=== PATIENT | female | born 1975 | race American Indian/Alaskan Native ===

== ENCOUNTER 2017-05-15 08:59 | Emergency (ER) | payer MEDICARE, MEDICAID ==
[2017-05-15 09:00] VITALS: BMI 35.2
[2017-05-15] MEDS ORDERED: Famotidine 20mg/50ml 20 MG/50 ML BAG IVPB STA (09:19)
--- NOTE | 2017-05-15 09:20 | ED PDOC ---
Arrival/HPI - General Time Seen by Provider: 05/15/17 09:00 Historian: Patient - History of Present Illness Narrative History of Present Illness (Text): 05/15/17 09:10 Demi Corral is a 41 year old female, whose past medical history includes lupus , hypothyroidism, and RA, who presents to the emergency department complaining of shortness of breath since one day ago. Patient reports also having a "gas bubble" feeling in her upper abdomen that has been intermittent for one week and describes it as an aching feeling. Her shortness of breath is worse with movement and improves on rest. Patient denies fever, nasal congestion, chest pain, nausea, vomiting, diarrhea, or other complaints. PMD: Dr. Garcia Lithographic Press Operator Apprentice: Dr. Raya Time/Duration: 24 hours Symptom Onset: Sudden Symptom Course: Unchanged, Intermittent Quality: Aching, Gas Like Activities at Onset: Light Past Medical History - Provider Review Nursing Documentation Reviewed: Yes - Infectious Disease Hx of Infectious Diseases: None - Tetanus Immunization Tetanus Immunization: Up to Date - Cardiac Hx Cardiac Disorders: No - Pulmonary Hx Pneumonia: Yes - Neurological Hx Neurological Disorder: No - HEENT Hx HEENT Disorder: No - Renal Hx Renal Disorder: No - Endocrine/Metabolic Hx Hypothyroidism: Yes Hx Systemic Lupus Erythematosus: Yes - Hematological/Oncological Other/Comment: lupus - Integumentary Hx Dermatological Disorder: No - Musculoskeletal/Rheumatological Hx Arthritis: Yes (RA) - Gastrointestinal Hx Gastrointestinal Disorders: No - Genitourinary/Gynecological Hx Genitourinary Disorders: No - Psychiatric Hx Depression: No Hx Emotional Abuse: No Hx Physical Abuse: No Hx Substance Use: No - Surgical History Hx Orthopedic Surgery: Yes (left leg ruptured achillies tendon sx, RIGHT ANKLE) Other/Comment: vocal cord nodule removal - Anesthesia Hx Anesthesia: Yes - Suicidal Assessment Feels Threatened In Home Enviroment: No Family/Social History - Physician Review Nursing Documentation Reviewed: Yes Family/Social History: Unknown Family HX Smoking Status: Never Smoked Hx Alcohol Use: No Hx Substance Use: No Hx Substance Use Treatment: No Allergies/Home Meds Allergies/Adverse Reactions: Allergies aspirin Allergy (Verified 05/15/17 09:28) RASH Home Medications: Home Meds Medication Instructions Recorded Confirmed Adalimumab [Humira] 40 mg SC Q2W 06/19/14 05/15/17 Hydroxychloroquine Sulfate 200 mg PO BID 03/25/16 05/15/17 [Plaquenil] Levothyroxine [Synthroid] 225 mcg PO DAILY 03/25/16 05/15/17 Mycophenolate Mofetil [Cellcept] 500 mg PO BID 03/25/16 05/15/17 Review of Systems - Review of Systems Constitutional: absent: Fevers Respiratory: SOB. absent: Cough Cardiovascular: absent: Chest Pain Gastrointestinal: Abdominal Pain (gas like feeling on upper abdominal region). absent: Diarrhea, Nausea, Vomiting Genitourinary Female: absent: Dysuria, Frequency, Vaginal Discharge Musculoskeletal: absent: Back Pain Skin: absent: Rash Neurological: absent: Headache Endocrine: absent: Diaphoresis Psychiatric: absent: Anxiety Physical Exam Vital Signs Reviewed: Yes Vital Signs Temp Pulse Resp BP Pulse Ox 05/15/17 13:00 88 17 125/81 98 05/15/17 10:58 72 18 108/71 100 05/15/17 09:40 98.8 F 80 18 105/71 100 05/15/17 09:30 16 99 Temperature: Afebrile Blood Pressure: Normal Pulse: Regular Respiratory Rate: Normal Appearance: Positive for: Well-Appearing, Non-Toxic, Comfortable Pain Distress: None Mental Status: Positive for: Alert and Oriented X 3 - Systems Exam Head: Present: Atraumatic, Normocephalic Pupils: Present: PERRL Extroacular Muscles: Present: EOMI Conjunctiva: Present: Normal Neck: Present: Normal Range of Motion Respiratory/Chest: Present: Clear to Auscultation, Good Air Exchange. No: Respiratory Distress, Accessory Muscle Use Cardiovascular: Present: Regular Rate and Rhythm, Normal S1, S2. No: Murmurs Abdomen: Present: Tenderness (epigastric region), Normal Bowel Sounds. No: Distention, Peritoneal Signs, Rebound, Guarding Lower Extremity: Present: Normal Inspection, NORMAL PULSES, Normal ROM, Neurovascularly Intact, Capillary Refill < 2 s. No: Edema, Cyanosis, Srikanth's Sign, Tenderness, Swelling Neurological: Present: GCS=15, CN II-XII Intact, Speech Normal Skin: Present: Warm, Dry, Normal Color. No: Rashes Psychiatric: Present: Alert, Oriented x 3, Normal Insight, Normal Concentration Medical Decision Making ED Course and Treatment: 05/15/17 Impression: 41 year old female with tenderness on epigastric region of abdomen complaining of shortness of breath and gas like description discomfort in upper abdomen. Differential Diagnosis included but are not limited to: Pleuritis vs. Pulmonary embolism vs Pericarditis vs. CHF exacerbation Plan: -- EKG -- Chest X-ray -- Labs -- Urinalysis -- Pepcid -- Reassess and disposition Progress Notes: EKG: Ordered, reviewed, and independently interpreted the EKG. Rate : 83 BPM Rhythm : NSR Interpretation : T-wave inversion on anterior leads. No change from previous EKG Comparison : 03/25/2016 05/15/17 12:00 CT chest: Creator : Kj Parks MD COMPARISON: 03/25/2016 CT pulmonary angiogram. Summary of findings on the comparison examination: Point Unremarkable CT pulmonary angiogram. No pulmonary embolus. FINDINGS: PULMONARY ARTERIES:Unremarkable. No pulmonary embolism. Dilated main pulmonary artery suggestive of pulmonary arterial hypertension. AORTA:No acute findings. No thoracic aortic aneurysm. LUNGS:Unremarkable. No nodule, mass or pulmonary consolidation. PLEURAL SPACES:Unremarkable. No effusion or pneuomothorax. HEART:Unremarkable. No cardiomegaly. No significant pericardial effusion. LYMPH NODES:No lymphadenopathy. BONES, CHEST WALL:Unremarkable. No fracture or destructive lesion OTHER FINDINGS:Unremarkable. IMPRESSION: Unremarkable CT pulmonary angiogram. No pulmonary embolus.No significant interval change compared to the prior examination(s) 05/15/17 14:[address] reviewed and explained to patient the results. Troponin negative. EKG normal with no change from previous. No evidence of pericarditis. Patient felt better after Pepcid IV. UA showed UTI so will treat with Bactrim. CBC showed WBC 1.6. Patient does not have a fever nor does she report a fever. She walks around the ED without shortness of breathe or desaturation. She feels much better and will be discharged home. She will follow up with her primary care doctor and rhematologist. She was advised to return to the ED if symptoms worsen, fever, chills, shortness of breathe, or any other concern. - Lab Interpretations Lab Results: 05/15/17 10:15 05/15/17 10:15 Lab Results 05/15/17 10:15: TSH 3rd Generation 51.00 H 05/15/17 10:15: Sodium 137, Potassium 4.2, Chloride 101, Carbon Dioxide 26, Anion Gap 15, BUN 11, Creatinine 1.0, Est GFR ( Amer) > 60, Est GFR (Non- Af Amer) > 60, Random Glucose 81, Calcium 9.4, Magnesium 1.6 L, Total Bilirubin 0.5, AST 26, ALT 13, Alkaline Phosphatase 87, Lactate Dehydrogenase 603, Total Creatine Kinase 39, Troponin I < 0.01, NT-Pro-B Natriuret Pep 66.5, Total Protein 9.1 H, Albumin 3.6, Globulin 5.4, Albumin/Globulin Ratio 0.7 L, Lipase 237 05/15/17 10:15: PT 12.4, INR 1.08, APTT 34.3, D-Dimer, Quantitative 2474 H 05/15/17 10:15: WBC 1.6 L* D, RBC 3.19 L, Hgb 9.7 L, Hct 30.7 L, MCV 96.2, MCH 30.4, MCHC 31.6, RDW 15.1 H, Plt Count 127, MPV 10.9, Gran % 73.5 H, Lymph % ( Auto) 18.9 L, Daniels % (Auto) 5.7, Eos % (Auto) 1.9, Baso % (Auto) 0.0, Gran # 1.17 L, Lymph # (Auto) 0.3 L, Daniels # (Auto) 0.1, Eos # (Auto) 0.0, Baso # (Auto ) 0.00 05/15/17 05:30: Urine Color Yellow, Urine Appearance Sl cloudy, Urine pH 6.0, Ur Specific [place] 1.025, Urine Protein Trace H, Urine Glucose (UA) Negative, Urine Ketones Trace H, Urine Blood Negative, Urine Nitrate Positive H, Urine Bilirubin Negative, Urine Urobilinogen 0.2, Ur Leukocyte Esterase Small H, Urine RBC 0 - 2, Urine WBC 5 - 10, Ur Epithelial Cells 3 - 4, Urine Bacteria Many I have reviewed the lab results: Yes - RAD Interpretation Radiology Orders: 05/15/17 09:18 CHEST PORTABLE [RAD] Stat 05/15/17 09:29 ANGIO CHEST PE PROTOCOL [CT] Stat Traveling Repair Accountant: Radiologist - EKG Interpretation Interpreted by ED Physician: Yes Type: 12 lead EKG Comparison: Com.w/previous EKG (03/25/2016) - Medication Orders Current Medication Orders: Discontinued Medications Famotidine (Pepcid 20mg/50ml Premix) 20 mg in 50 mls @ 100 mls/hr IVPB STAT STA Stop: 05/15/17 09:48 Last Admin: 05/15/17 10:08 Dose: 100 mls/hr eMAR Start Stop Document 05/15/17 10:08 BERNADINE (Rec: 05/15/17 10:17 BERNADINE [id number]) Intravenous Solution Start Date 05/15/17 Start Time 10:17 End Date 05/15/17 End time 10:47 Total Infusion Time 30 Oxycodone/Acetaminophen (Percocet 5/325 Mg Tab) 1 tab PO STAT STA Stop: 05/15/17 11:58 Last Admin: 05/15/17 12:11 Dose: 1 tab MAR Pain Assessment Document 05/15/17 12:11 BERNADINE (Rec: 05/15/17 12:12 BERNADINE [facility] [id number]) Pain Reassessment Is this a pain reassessment? Yes Presence of Pain Presence of Pain Yes Pain Scale Used Pain Scale Used Numeric Location Pain Location Body Site Joint Description Intensity of Pain at present 8 Trimethoprim/Sulfamethoxazole (Bactrim Ds Tab) 1 tab PO STAT STA PRN Reason: Protocol Stop: 05/15/17 12:12 Last Admin: 05/15/17 12:51 Dose: 1 tab - Scribe Statement The provider has reviewed the documentation as recorded by the Scribe Gisela Lopez Provider Scribe Attestation: All medical record entries made by the Scribe were at my direction and personally dictated by me. I have reviewed the chart and agree that the record accurately reflects my personal performance of the history, physical exam, medical decision making, and the department course for this patient. I have also personally directed, reviewed, and agree with the discharge instructions and disposition. Disposition/Present on Arrival - Present on Arrival Any Indicators Present on Arrival: No History of DVT/PE: No History of Uncontrolled Diabetes: No Urinary Catheter: No History Surgical Site Infection Following: None - Disposition Have Diagnosis and Disposition been Completed?: Yes Diagnosis: Pleuritis, Shortness of breath, Gastritis, Neutropenia Disposition: HOME/ ROUTINE Disposition Time: 14:08 Patient Plan: Discharge Condition: IMPROVED Discharge Instructions (ExitCare): Gastritis (ED) Additional Instructions: Ms Corral, thank you for letting us take care of you today. Your provider was Dr. Dozier. You were treated for Neutropenic, Gastritis, Pleuritis, Shortness of Breathe. The emergency medical care you received today was directed at your acute symptoms. If you were prescribed any medication, please fill it and take as directed. It may take several days for your symptoms to resolve. Return to the Emergency Department if your symptoms worsen, do not improve, or if you have any other problems. Please contact your doctor or call one of the physicians/clinics you have been referred to that are listed on the Patient Visit Information form that is included in your discharge packet. Bring any paperwork you were given at discharge with you along with any medications you are taking to your follow up visit. Our treatment cannot replace ongoing medical care by a primary care provider (PCP) outside of the emergency department. Thank you for allowing the [email or web address] team to be part of your care today. If you had an X-Ray or CT scan: A Radiologist will review the ED reading if any change in treatment is needed we will contact you. If you had a blood, urine, or wound culture: It will take several days for the results, if any change in treatment is needed we will contact you. If you had an STI test: It will take 48 hours for the results. Please call after 1 week if you have not heard back. Prescriptions: Sulfamethoxazole/Trimethoprim [Bactrim DS 800 mg-160 mg] 1 tab PO Q12 #6 tab Referrals: Felicia Garcia MD [Primary Care Provider] - Follow up with primary Forms: [employer] (Czech), WORK NOTE
[2017-05-15 09:41] VITALS: TEMP 98.8
[2017-05-15 10:17] LABS: URINE BILIRUBIN NEGATIVE (NEGATIVE); URINE BLOOD NEGATIVE (NEGATIVE); URINE GLUCOSE (UA) NEGATIVE (NEGATIVE); URINE LEUKOCYTE ESTERASE SMALL Leu/uL (NEGATIVE); URINE NITRATE POSITIVE (NEGATIVE); URINE PROTEIN TRACE mg/dL (<30 mg/dL); URINE UROBILINOGEN 0.2 E.U./dL (<1 E.U./dL)
[2017-05-15 10:25] LABS: URINE COLOR YELLOW (YELLOW)
[2017-05-15 10:26] LABS: URINE APPEARANCE SL CLOUDY (CLEAR)
[2017-05-15 10:34] LABS: EOS % 1.9 % (1.5-5.0); GRAN # 1.17 (1.4-6.5); GRAN % 73.5 % (50.0-68.0); HEMOGLOBIN 9.7 g/dL (12.0-16.0); LYMPH # 0.3 (1.2-3.4); LYMPH % 18.9 % (22.0-35.0); MEAN CELL VOLUME 96.2 fl (80.0-105.0); MEAN CORPUSCULAR HEMOGLOBIN 30.4 pg (25.0-35.0); MEAN CORPUSCULAR HGB CONC 31.6 g/dl (31.0-37.0); MEAN PLATELET VOLUME 10.9 fl (7.0-11.0); MONO # 0.1 (0.1-0.6); MONO % 5.7 % (1.0-6.0); RBC 3.19 10^6/uL (3.5-6.1); RED CELL DISTRIBUTION WIDTH 15.1 % (11.5-14.5)
[2017-05-15 10:41] LABS: WHITE BLOOD COUNT 1.6 10^3/ul (4.5-11.0)
[2017-05-15 10:43] LABS: URINE RBC 0 - 2 /hpf (0-2)
[2017-05-15 10:44] LABS: URINE BACTERIA MANY (NEG)
[2017-05-15] MEDS ORDERED: Iohexol 350 MG/100 ML VIAL ONE (10:44)
[2017-05-15 10:46] LABS: INR 1.08 (0.93-1.08); PARTIAL THROMBOPLASTIN TIME 34.3 Seconds (25.1-36.5); PROTHROMBIN TIME 12.4 SECONDS (9.4-12.5)
[2017-05-15 10:52] LABS: B-TYPE NATRIURETIC PEPTIDE 66.5 pg/mL (0-450); TROPONIN I < 0.01 ng/mL
[2017-05-15 10:54] LABS: ALB/GLOB RATIO 0.7 (1.1-1.8); ALBUMIN 3.6 g/dL (3.0-4.8); ALT/SGPT 13 U/L (7-56); AST/SGOT 26 U/L (14-36); BLOOD UREA NITROGEN 11 mg/dL (7-21); CALCIUM 9.4 mg/dL (8.4-10.5); GFR AFRICAN-AMERICAN > 60; GFR NON-AFRICAN AMERICAN > 60; LIPASE 237 U/L (23-300); MAGNESIUM 1.6 mg/dL (1.7-2.2)
--- NOTE | 2017-05-15 11:51 | CT ---
PROCEDURE: CT Chest with contrast (Pulmonary Angiogram) HISTORY: r/o PE COMPARISON: 03/25/2016 CT pulmonary angiogram. Summary of findings on the comparison examination: Point Unremarkable CT pulmonary angiogram. No pulmonary embolus. TECHNIQUE: Axial computed tomography images were obtained of the chest in the pulmonary arterial phase of enhancement. Coronal and sagittal reformatted images were created and reviewed. Maximum intensity projection (MIP) reconstructed images in the following planes: Axial and sagittal projections. Intravenous contrast dose: 100 cc Omnipaque 350. Mean Hounsfield unit values in the main pulmonary artery: 328.31 Radiation dose: Total exam DLP = 393.10 mGy-cm. This CT exam was performed using one or more of the following dose reduction techniques: Automated exposure control, adjustment of the mA and/or kV according to patient size, and/or use of iterative reconstruction technique. FINDINGS: PULMONARY ARTERIES: Unremarkable. No pulmonary embolism. Dilated main pulmonary artery suggestive of pulmonary arterial hypertension. AORTA: No acute findings. No thoracic aortic aneurysm. LUNGS: Unremarkable. No nodule, mass or pulmonary consolidation. PLEURAL SPACES: Unremarkable. No effusion or pneuomothorax. HEART: Unremarkable. No cardiomegaly. No significant pericardial effusion. LYMPH NODES: No lymphadenopathy. BONES, CHEST WALL: Unremarkable. No fracture or destructive lesion OTHER FINDINGS: Unremarkable. IMPRESSION: Unremarkable CT pulmonary angiogram. No pulmonary embolus.No significant interval change compared to the prior examination(s).
[2017-05-15] MEDS ORDERED: Oxycodone/Acetaminophen 5/325 mg Tab PO STA (11:57)
[2017-05-15] MEDS ORDERED: Tmp-Smz 800 mg-160 mg DS Tab PO STA (12:11)
--- NOTE | 2017-05-15 12:39 | RAD ---
HISTORY: Shortness of breath. COMPARISON: 03/25/2016 goNo prior. FINDINGS: LUNGS: No active pulmonary disease. PLEURA: No significant pleural effusion identified, no pneumothorax apparent. CARDIOVASCULAR: No radiographic findings to suggest acute or significant cardiovascular disease. OSSEOUS STRUCTURES: No significant abnormalities. VISUALIZED UPPER ABDOMEN: Normal. OTHER FINDINGS: None. IMPRESSION: No active disease. No significant interval change compared to the prior examination(s). Concordant results with the preliminary interpretation rendered by the emergency department physician procedure.
[2017-05-15 13:01] VITALS: BP 125/81; PULSE 88; RESP 17; O2SAT 98
--- NOTE | 2017-05-15 16:36 | CARD ---
APPROVED REPORT EKG Measurement Heart [id number] 132P48 [id number] <Conclusion> Poor data quality, interpretation may be adversely affected Normal sinus rhythm Cannot rule out Anterior infarct, age undetermined Abnormal ECG
== END 2017-05-15 14:08 | disposition home or self-care (01) ==
LOC: ED 08:59
DX: K29.70 Gastritis, unspecified, without bleeding (principal); D70.9 Neutropenia, unspecified; R06.02 Shortness of breath; R09.1 Pleurisy
CPT/HCPCS: 71045; 71275; 80053; 81001; 82550; 83615; 83690; 83735; 83880; 84443; 84484; 85025; 85378; 85610; 85730; 93005; 96365; 99283; Q9967

== ENCOUNTER 2017-08-15 22:40 | Inpatient (IN) | payer MEDICARE, MEDICAID ==
[2017-08-15] MEDS ORDERED: Sodium Chloride 0.9% 1,000 ML IV STA (23:12)
--- NOTE | 2017-08-15 23:16 | ED PDOC ---
Arrival/HPI - General Chief Complaint: GI Problem Time Seen by Provider: 08/15/17 22:49 Historian: Patient, Family - History of Present Illness Narrative History of Present Illness (Text): you were treated in the ED today for hx of Lupus, rheumatoid arthritis, hypothyroidism, and ran out of hydro-codone and now with nausea/vomiting for several episodes and otherwise without any bile/blood/new foods/travel/sick contacts/headache/dizziness/difficulty breathing/chest pain/abdomen pain/ numbness/tingling/loss of limb function/pain with urination/thoughts to harm yourself or others or hallucinations. 08/15/17 23:13 Time/Duration: 24 hours Symptom Onset: Gradual Symptom Course: Intermittent Quality: Other (no pain) Activities at Onset: Rest Context: Sitting Past Medical History - Provider Review Nursing Documentation Reviewed: Yes - Travel History Have you recently traveled outside [place] w/in the past 3 mons?: No - Infectious Disease Hx of Infectious Diseases: None - Tetanus Immunization Tetanus Immunization: Up to Date - Cardiac Hx Cardiac Disorders: No - Pulmonary Hx Pneumonia: Yes - Neurological Hx Neurological Disorder: No - HEENT Hx HEENT Disorder: No - Renal Hx Renal Disorder: No - Endocrine/Metabolic Hx Hypothyroidism: Yes Hx Systemic Lupus Erythematosus: Yes - Hematological/Oncological Other/Comment: lupus - Integumentary Hx Dermatological Disorder: No - Musculoskeletal/Rheumatological Hx Arthritis: Yes (RA) Hx Rheumatoid Arthritis: Yes - Gastrointestinal Hx Gastrointestinal Disorders: No - Genitourinary/Gynecological Hx Genitourinary Disorders: No - Psychiatric Hx Depression: No Hx Emotional Abuse: No Hx Physical Abuse: No Hx Substance Use: No - Surgical History Hx Orthopedic Surgery: Yes (left leg ruptured achillies tendon sx, RIGHT ANKLE) Other/Comment: vocal cord nodule removal - Anesthesia Hx Anesthesia: Yes - Suicidal Assessment Feels Threatened In Home Enviroment: No Family/Social History - Physician Review Nursing Documentation Reviewed: Yes Family/Social History: No Known Family HX Smoking Status: Never Smoked Hx Alcohol Use: No Hx Substance Use: No Hx Substance Use Treatment: No Allergies/Home Meds Allergies/Adverse Reactions: Allergies aspirin Allergy (Verified 05/15/17 09:28) RASH Home Medications: Home Meds Medication Instructions Recorded Confirmed Adalimumab [Humira] 40 mg SC Q2W 06/19/14 08/15/17 Hydroxychloroquine Sulfate 200 mg PO BID 03/25/16 08/15/17 [Plaquenil] Levothyroxine [Synthroid] 225 mcg PO DAILY 03/25/16 08/15/17 Mycophenolate Mofetil [Cellcept] 500 mg PO BID 03/25/16 08/15/17 Hydrocodone/Acetaminophen 1 tab PO QID PRN 08/15/17 08/15/17 [Hydrocodone-Acetaminophen 325 mg-7 mg] Review of Systems - Review of Systems Constitutional: Normal Eyes: Normal ENT: Normal Respiratory: Normal Cardiovascular: Normal Gastrointestinal: Nausea, Vomiting Genitourinary Female: Normal Musculoskeletal: Normal Skin: Normal Neurological: Normal Endocrine: Normal Hemo/Lymphatic: Normal Psychiatric: Normal Physical Exam Vital Signs Reviewed: Yes Vital Signs Temp Pulse Resp BP Pulse Ox 08/16/17 00:10 100 08/15/17 23:52 103.3 F H 111 H 20 115/80 Appearance: Positive for: Well-Appearing, Non-Toxic, Comfortable Pain Distress: None Mental Status: Positive for: Alert and Oriented X 3 - Systems Exam Head: Present: Atraumatic, Normocephalic Pupils: Present: PERRL Extroacular Muscles: Present: EOMI Conjunctiva: Present: Normal Ears: Present: Normal Mouth: Present: Moist Mucous Membranes Pharnyx: Present: Normal Nose (External): Present: Atraumatic Nose (Internal): Present: Normal Inspection Neck: Present: Normal Range of Motion Respiratory/Chest: Present: Clear to Auscultation, Good Air Exchange Cardiovascular: Present: Regular Rate and Rhythm Abdomen: No: Tenderness, Distention, Normal Bowel Sounds, Peritoneal Signs, Rebound, Guarding, McBurney's Point Tender, Rovsing's Sign Present, Hernias, Feeding Tubes, Ostomy Tubes, Mass/Organomegaly, Scars, Other Back: Present: Normal Inspection Upper Extremity: Present: Normal Inspection Lower Extremity: Present: Normal Inspection Neurological: Present: GCS=15, CN II-XII Intact, Speech Normal, Motor Func Grossly Intact Skin: Present: Warm, Normal Color Psychiatric: Present: Alert, Oriented x 3, Normal Insight, Normal Concentration Medical Decision Making ED Course and Treatment: you were treated in the ED today for hx of Lupus, rheumatoid arthritis, hypothyroidism, and ran out of hydro-codone and now with nausea/vomiting for several episodes and otherwise without any bile/blood/new foods/travel/sick contacts/headache/dizziness/difficulty breathing/chest pain/abdomen pain/ numbness/tingling/loss of limb function/pain with urination/thoughts to harm yourself or others or hallucinations. You were otherwise breathing easily, talking easily with your son, pink lips, good strength/sensation, walking easily , clear lungs, no abdomen tenderness, fever temp 103.3, fast heart rate 111, stable breathing rate 20, excellent oxygen level 100% room air, elevated blood pressure 115/80 which we recommend repeat in 2-3 days primary care office to determine further treatment, you have blood tests no infection count 9.8, stable blood level hemoglobin 9.9/platelets 195, stable chemistry, heart blood test negative less than 0.01, urine test pending, lactic acid negative 1.8, influenza test negative, ECG sinus tachycardia, chest xray with right hilar fullness/early pneumonia, saline, zofran, percocet, azithromycin, observation done in the ED without improvement. d/w patient who states feels dehydrated with nausea/vomiting, and requested admission and dw Dr. Nayak who accepted for hydration, iv azithromycin treatment, for dehydration, early pneumonia and opioid withdrawal to remote telemetry. Reassessment Condition: Re-examined, Improved - Lab Interpretations Lab Results: 08/15/17 23:40 08/15/17 23:40 Lab Results 08/16/17 00:50: pO2 25 L, VBG pH 7.43, VBG pCO2 45.0, VBG HCO3 29.9 H, VBG Total CO2 31.3 H, VBG O2 Sat (Calc) 42.5, VBG Base Excess 4.8 H, VBG Potassium 4.3, Glucose 81, Lactate 1.8, FiO2 21.0, Sodium 138.0, Chloride 105.0, Venous Blood Potassium 4.3 08/16/17 00:08: Influenza Typ A,B (EIA) Negative for flu a/b 08/15/17 23:40: Sodium 142, Potassium 4.7, Chloride 101, Carbon Dioxide 27, Anion Gap 19, BUN 15, Creatinine 1.1, Est GFR ( Amer) > 60, Est GFR (Non- Af Amer) 54, Random Glucose 90, Calcium 9.5, Magnesium 1.7, Total Bilirubin 0.6 , AST 35, ALT 8, Alkaline Phosphatase 107, Lactate Dehydrogenase 714 H, Total Creatine Kinase 25 L, Troponin I < 0.01, Total Protein 9.9 H, Albumin 4.0, Globulin 5.9, Albumin/Globulin Ratio 0.7 L 08/15/17 23:40: PT 13.8 H, INR 1.21 H, APTT 36.4 08/15/17 23:40: WBC 9.8 D, RBC 3.32 L, Hgb 9.9 L, Hct 30.4 L, MCV 91.6 D, MCH 29.8, MCHC 32.6, RDW 14.2, Plt Count 195, MPV 11.0, Gran % 90.6 H, Lymph % (Auto ) 4.8 L, [place] % (Auto) 4.5, Eos % (Auto) 0.0 L, Baso % (Auto) 0.1, Gran # 8.90 H , Lymph # (Auto) 0.5 L, [place] # (Auto) 0.4, Eos # (Auto) 0.0, Baso # (Auto) 0.01 , Neutrophils % (Manual) 85 H, Band Neutrophils % 4 H, Lymphocytes % (Manual) 6 L, Monocytes % (Manual) 5, Platelet Evaluation Normal I have reviewed the lab results: Yes - RAD Interpretation Radiology Orders: 08/16/17 00:01 CHEST PORTABLE [RAD] Stat Assistant Professor Of Philosophy: ED Physician - EKG Interpretation Interpreted by ED Physician: Yes (sinus tachycardia, flipped t waves avr, v1, v2 , v3, v4, v5, v5, iii) Type: 12 lead EKG - Medication Orders Current Medication Orders: Discontinued Medications Acetaminophen (Tylenol 325mg Tab) 650 mg PO STAT STA Stop: 08/16/17 00:03 Last Admin: 08/16/17 00:12 Dose: 650 mg Azithromycin (Zithromax) 500 mg PO STAT STA PRN Reason: Protocol Stop: 08/16/17 01:29 Last Admin: 08/16/17 01:59 Dose: 500 mg Sodium Chloride (Sodium Chloride 0.9%) 1,000 mls @ 999 mls/hr IV .Q1H1M STA Stop: 08/16/17 00:12 Last Admin: 08/15/17 23:48 Dose: 999 mls/hr eMAR Start Stop Document 08/15/17 23:48 CNR (Rec: 08/15/17 23:48 CNR [id number]) Intravenous Solution Start Date 08/15/17 Start Time 23:48 Ondansetron HCl (Zofran Inj) 4 mg IVP STAT STA Stop: 08/15/17 23:13 Last Admin: 08/15/17 23:48 Dose: 4 mg IVP Administration Document 08/15/17 23:48 CNR (Rec: 08/15/17 23:49 CNR [id number]) Charges for Administration # of IVP Administrations 1 Oxycodone/Acetaminophen (Percocet 5/325 Mg Tab) 1 tab PO STAT STA Stop: 08/15/17 23:37 Last Admin: 08/15/17 23:49 Dose: 1 tab MAR Pain Assessment Document 08/15/17 23:49 CNR (Rec: 08/15/17 23:49 CNR [id number]) Pain Reassessment Is this a pain reassessment? Yes Disposition/Present on Arrival - Present on Arrival Any Indicators Present on Arrival: No History of DVT/PE: No History of Uncontrolled Diabetes: No Urinary Catheter: No History of Decub. Ulcer: No History Surgical Site Infection Following: None - Disposition Have Diagnosis and Disposition been Completed?: Yes Diagnosis: Opioid withdrawal, Dehydration, Nausea & vomiting, Pneumonia Disposition: HOSPITALIZED Disposition Time: 03:05 Patient Plan: Admission Condition: STABLE Referrals: Jerrell Rondon MD [Primary Care Provider] - Follow up with primary Forms: [employer] (Romansh)
[2017-08-15] MEDS ORDERED: Oxycodone/Acetaminophen 5/325 mg Tab PO STA (23:36)
[2017-08-16] LABS: BASO # 0.01 K/mm3 (0.0-2.0); BASO % 0.1 % (0.0-3.0); GRAN % 90.6 % (50.0-68.0); HEMOGLOBIN 9.9 g/dL (12.0-16.0); LYMPH # 0.5 (1.2-3.4); LYMPH % 4.8 % (22.0-35.0); MEAN CORPUSCULAR HEMOGLOBIN 29.8 pg (25.0-35.0); MEAN CORPUSCULAR HGB CONC 32.6 g/dl (31.0-37.0); MONO # 0.4 (0.1-0.6); MONO % 4.5 % (1.0-6.0); PLATELET COUNT 195 10^3/uL (120.0-450.0); RBC 3.32 10^6/uL (3.5-6.1); RED CELL DISTRIBUTION WIDTH 14.2 % (11.5-14.5); WHITE BLOOD COUNT 9.8 10^3/ul (4.5-11.0)
[2017-08-16 00:05] LABS: MEAN CELL VOLUME 91.6 fl (80.0-105.0)
[2017-08-16 00:06] LABS: ALB/GLOB RATIO 0.7 (1.1-1.8); CALCIUM 9.5 mg/dL (8.4-10.5); GFR AFRICAN-AMERICAN > 60; GFR NON-AFRICAN AMERICAN 54; INR 1.21 (0.93-1.08); PARTIAL THROMBOPLASTIN TIME 36.4 Seconds (25.1-36.5); PROTHROMBIN TIME 13.8 SECONDS (9.4-12.5)
[2017-08-16 00:17] LABS: TROPONIN I < 0.01 ng/mL
[2017-08-16 00:46] LABS: BAND 4 % (0-2); NEUTROPHIL 85 % (50.0-70.0)
[2017-08-16 00:47] LABS: LYMPHOCYTE 6 % (22.0-35.0); MONOCYTE 5 % (1.0-6.0); PLATELET ESTIMATE NORMAL (NORMAL)
[2017-08-16 00:52] LABS: ALT/SGPT 8 U/L (7-56); AST/SGOT 35 U/L (14-36); BLOOD UREA NITROGEN 15 mg/dL (7-21)
[2017-08-16 01:08] LABS: VENOUS BLOOD GAS BASE EXCESS 4.8 mmol/L (0.0-2.0); VENOUS BLOOD GAS PO2 25 mm/Hg (30-55); VENOUS BLOOD PH 7.43 (7.32-7.43)
[2017-08-16] MEDS ORDERED: Azithromycin 500MG/NS 250ml 500 MG/250 ML BAG IVPB STA (02:59)
[2017-08-16] MEDS ORDERED: Oxycodone/Acetaminophen 5/325 mg Tab PO STA (03:07)
[2017-08-16 05:03] LABS: URINE BILIRUBIN NEGATIVE (NEGATIVE); URINE BLOOD NEGATIVE (NEGATIVE); URINE GLUCOSE (UA) NEGATIVE (NEGATIVE); URINE LEUKOCYTE ESTERASE NEGATIVE Leu/uL (NEGATIVE); URINE PROTEIN 30 mg/dL (<30 mg/dL); URINE UROBILINOGEN 0.2 E.U./dL (<1 E.U./dL)
[2017-08-16 05:11] LABS: URINE APPEARANCE CLEAR (CLEAR); URINE COLOR YELLOW (YELLOW)
[2017-08-16 05:15] LABS: PHENCYCLIDINE, UR NEGATIVE (NEGATIVE)
[2017-08-16 05:20] LABS: URINE BACTERIA RARE (NEG); URINE RBC 0 - 2 /hpf (0-2)
[2017-08-16 05:35] VITALS: BMI 32.1
[2017-08-16 05:41] LABS: BARBITURATES, UR NEGATIVE (NEGATIVE); BENZODIAZEPINES, UR NEGATIVE (NEGATIVE); OPIATES, UR POSITIVE (NEGATIVE)
--- NOTE | 2017-08-16 08:48 | CARD ---
APPROVED REPORT EKG Measurement Heart [id number] [id number] <Conclusion> Sinus tachycardia Nonspecific T wave abnormality Shallow T wave inversions V5 - 6 are new.
--- NOTE | 2017-08-16 09:13 | RAD ---
HISTORY: 42yoF, fever COMPARISON: 05/15/2017 FINDINGS: LUNGS: No active pulmonary disease. PLEURA: No significant pleural effusion identified, no pneumothorax apparent. CARDIOVASCULAR: Normal. OSSEOUS STRUCTURES: No significant abnormalities. VISUALIZED UPPER ABDOMEN: Normal. OTHER FINDINGS: None. IMPRESSION: No active disease.
[2017-08-16] MEDS ORDERED: MYCOPHENOLATE MOFETIL 500 MG PO SCH (10:00)
[2017-08-16] MEDS ORDERED: ADALIMUMAB 40 MG SC SCH (10:00)
[2017-08-16] MEDS ORDERED: Levothyroxine 25 MCG TAB PO SCH (10:00)
[2017-08-16] MEDS: Oxycodone/Acetaminophen 5/325 mg Tab PO PRN ×3 (10:01→20:24)
[2017-08-16] MEDS: Levothyroxine 25 MCG TAB PO SCH (10:11)
[2017-08-16] MEDS: Levothyroxine 100 MCG TAB PO SCH (10:11)
[2017-08-17] MEDS: Oxycodone/Acetaminophen 5/325 mg Tab PO PRN ×5 (02:11→23:34)
[2017-08-17 06:46] LABS: TOTAL IRON BINDING CAPACITY 177 ug/dL (265-497)
[2017-08-17 06:47] LABS: % IRON SATURATION 16 % (20-55); IRON 28 ug/dL (45-180)
[2017-08-17] MEDS: Levothyroxine 25 MCG TAB PO SCH (09:13)
[2017-08-17] MEDS: Levothyroxine 100 MCG TAB PO SCH (09:13)
[2017-08-17] MEDS: Azithromycin 500MG/NS 250ml 500 MG/250 ML BAG IVPB SCH (09:13)
[2017-08-17 09:59] LABS: HEMOGLOBIN 8.7 g/dL (12.0-16.0); MEAN CELL VOLUME 93.8 fl (80.0-105.0); MEAN CORPUSCULAR HEMOGLOBIN 29.8 pg (25.0-35.0); MEAN CORPUSCULAR HGB CONC 31.8 g/dl (31.0-37.0); MEAN PLATELET VOLUME 11.8 fl (7.0-11.0); RBC 2.92 10^6/uL (3.5-6.1); RED CELL DISTRIBUTION WIDTH 14.7 % (11.5-14.5); WHITE BLOOD COUNT 4.4 10^3/ul (4.5-11.0)
[2017-08-17 10:07] LABS: ALB/GLOB RATIO 0.6 (1.1-1.8); ALBUMIN 3.3 g/dL (3.0-4.8); ALT/SGPT < 6 U/L (7-56); AST/SGOT 31 U/L (14-36); BLOOD UREA NITROGEN 10 mg/dL (7-21); CALCIUM 8.5 mg/dL (8.4-10.5); GFR AFRICAN-AMERICAN > 60; GFR NON-AFRICAN AMERICAN > 60
--- NOTE | 2017-08-17 11:12 | HP ---
Patient was seen and examined at bedside on 08/16/2017. CHIEF COMPLAINT: ASSESSMENT AND PLAN: Ms. Demi Corral is a 42-year-old lady with anemia, has proteinuria, ketonuria, opiates positive in the system, influenza type A and B is negative, went for chest x-ray by Dr. Torey Nash. According to him, no active disease. Has history of lupus, rheumatoid arthritis, came with fever of 103, tachycardia at 110, then fever decreased to 101. We will bring the heart rate down. Emergency room tried to admit the patient to telemetry, but bed was not available that is why they put it down to the medical floor. History of pneumonia, hypothyroidism. Achilles tendon surgery, right ankle surgery, vocal cord nodules removed. We will continue present treatment. Has early pneumonia. I instructed her on Humira, Ativan, CellCept, oxycodone and levothyroxine for hypothyroidism, azithromycin, Zofran. We will repeat labs. We will follow up.some thing happened , i will do addendum Lynette Nayak MD MTDD
[2017-08-17 13:29] LABS: FOLATE 18.2 ng/mL
--- NOTE | 2017-08-17 17:46 | CON ---
DATE: 08/17/2017 HISTORY OF PRESENT ILLNESS: The patient is a 42-year-old -Lao female with a history of lupus, rheumatoid arthritis, hypothyroidism, no prior psychiatric history including admission, outpatient treatment, medication trials, or suicide attempts who is being treated on the medical floor for presumed pneumonia after she presented to the ER complaining about several episodes of nausea and vomiting as well as running out of her hydrocodone. The patient was also noted to have a fever of 103 while she was in the ER. Psychiatry was called to evaluate for depression as well as opioid withdrawal. I reviewed prior notes including ER report and met with the patient at bedside. She is calm and cooperative, alert and oriented to month, year, location, and circumstances. She denies having any psychiatric concerns at this time and was surprised by my presence regarding the evaluation; however, she was quite cooperative with my questioning. The patient indicates that she has been functioning fairly well regarding psychiatric symptoms and denies having any major stressors except for her medical conditions. The patient reports that she ran out of her pain medication a day early and indicates that this infrequency occurs. The patient reports that she has been having a very difficult time due to joint pain related to lupus and rheumatoid arthritis and also indicates that she feels her symptoms are amplified when it is raining outside. The patient was not aware that she was also suffering from pneumonia and fever, which also could have contributed to her distress and extra use of hydrocodone. The patient denies having any suicidal thoughts. She is hopeful about the future. She is cooperative with the medical team and there have been no behavioral issues on the medical floor thus far. The patient is coherent without any noted delusions and she denies having any hallucinations and she is not suffering from any noted perceptual disturbance during my interview at bedside this morning. Her responses are consistent and they are logical and goal directed. Her insight and judgment are considered to be fair. PSYCHIATRIC HISTORY: As noted above, the patient denies having any psychiatric hospitalizations, history of psychiatric medication trials or suicide attempts. She denies having any psychiatric outpatient treatments. SOCIAL HISTORY: The patient was born and raised in [place]. She is for almost 6 years. She lives with her two biological children and four children of her 's, they all live together. She is unemployed. She is graduated high school. She denies any pending legal issues. She reports that she feels her family is supportive. The patient denies any major stressors in that regard. IMPRESSION: Substance abuse versus misuse, brief period. Rule out opioid dependency, although it is quite unclear if the patient is actually suffering from this as review of her ER visits does not indicate the patient has a pattern of repeatedly using more pain killers than prescribed, otherwise there appeared to be no major psychiatric concerns except for stressors related to her medical condition. RECOMMENDATIONS: The patient is not danger to herself and others and does not appear to be overtly disorganized and unclear she requires substance abuse services at this time. I recommend that the medical team continue treating the patient for her presenting symptoms and Psychiatry will signoff. Please reconsult if there are any new symptoms or new changes to her presentation and we will be glad to follow up with this patient who presented as generally genuine and reliable regarding her history. Rosamaria Figueroa MD
--- NOTE | 2017-08-17 19:54 | CP.PCM.CON ---
History of Present Illness - History of Present Illness History of Present Illness: Infectious Disease Consultation: August 17, 2017 42 yo AA female with extensive medical history of lupus, rheumatoid arthritis, and hypothyroidism. The patient with nausea and vomiting. She was found to have tachycardia and fevers up to 103 F. She appears to be fully awake and alert. Noted Psychiatry evaluation. PMHx: Lupus, Rheumatoid Arthritis, Hypothyroidism. PSHX: right ankle surgery Left leg ruptured achillies tendon repair. Vocal cord nodule removal. Allergies: ASA Social Hx: No tobacco, EtOH, or illicit drug use. Active Medications Hydroxychloroquine Sulfate (Plaquenil) 200 mg PO BID [facility] PRN Reason: Protocol Last Admin: 08/17/17 17:29 Dose: 200 mg Azithromycin (Zithromax 500mg In Ns) 500 mg in 250 mls @ 167 mls/hr IVPB DAILY [facility] PRN Reason: Protocol Last Admin: 08/17/17 09:13 Dose: 167 mls/hr Levothyroxine Sodium (Synthroid) 200 mcg PO DAILY [facility] Last Admin: 08/17/17 09:13 Dose: 200 mcg Levothyroxine Sodium (Synthroid) 25 mcg PO DAILY [facility] Last Admin: 08/17/17 09:13 Dose: 25 mcg Lorazepam (Ativan) 0.5 mg PO TID PRN; Protocol PRN Reason: Restlessness Mycophenolate Mofetil (Cellcept Cap) 500 mg PO BID [facility] Last Admin: 08/17/17 17:29 Dose: 500 mg Non-Formulary Medication (Adalimumab [Humira]) 40 mg SC Q2W [facility] Oxycodone/Acetaminophen (Percocet 5/325 Mg Tab) 1 tab PO Q4H PRN PRN Reason: Pain, severe (8-10) Stop: 08/19/17 09:50 Last Admin: 08/17/17 18:59 Dose: 1 tab Family Hx: none given ROS: Fevers, nausea, vomiting, tachycardia No chest pain, abdominal pain, melena, hematuria, hematemesis, hematochezia, depression, anxiety. Past Patient History - Infectious Disease Hx of Infectious Diseases: None - Tetanus Immunizations Tetanus Immunization: Up to Date - Past Social History Smoking Status: Never Smoked - CARDIAC Hx Hypercholesterolemia: Yes - PULMONARY Hx Pneumonia: Yes - NEUROLOGICAL Hx Neurological Disorder: No - HEENT Hx HEENT Problems: No - RENAL Hx Chronic Kidney Disease: No - ENDOCRINE/METABOLIC Hx Hypothyroidism: Yes Hx Systemic Lupus Erythematosus: Yes - HEMATOLOGICAL/ONCOLOGICAL Other/Comment: lupus - INTEGUMENTARY Hx Dermatological Problems: No - MUSCULOSKELETAL/RHEUMATOLOGICAL Hx Falls: No - GASTROINTESTINAL Hx Gastrointestinal Disorders: No - GENITOURINARY/GYNECOLOGICAL Hx Incontinence: Yes - PSYCHIATRIC Hx Substance Use: No - SURGICAL HISTORY Hx Surgeries: Yes Other/Comment: L ACHILLES TENDON REPAIR, UNKNOWN RT ANKLE SX - ANESTHESIA Hx Anesthesia: Yes Meds Allergies/Adverse Reactions: Allergies Allergy/AdvReac Type Severity Reaction Status Date / Time aspirin Allergy RASH Verified 05/15/17 09:28 - Medications Medications: Current Medications Hydroxychloroquine Sulfate (Plaquenil) 200 mg PO BID [facility] PRN Reason: Protocol Last Admin: 08/17/17 17:29 Dose: 200 mg Azithromycin (Zithromax 500mg In Ns) 500 mg in 250 mls @ 167 mls/hr IVPB DAILY [facility] PRN Reason: Protocol Last Admin: 08/17/17 09:13 Dose: 167 mls/hr Levothyroxine Sodium (Synthroid) 200 mcg PO DAILY [facility] Last Admin: 08/17/17 09:13 Dose: 200 mcg Levothyroxine Sodium (Synthroid) 25 mcg PO DAILY [facility] Last Admin: 08/17/17 09:13 Dose: 25 mcg Lorazepam (Ativan) 0.5 mg PO TID PRN; Protocol PRN Reason: Restlessness Mycophenolate Mofetil (Cellcept Cap) 500 mg PO BID [facility] Last Admin: 08/17/17 17:29 Dose: 500 mg Non-Formulary Medication (Adalimumab [Humira]) 40 mg SC Q2W [facility] Oxycodone/Acetaminophen (Percocet 5/325 Mg Tab) 1 tab PO Q4H PRN PRN Reason: Pain, severe (8-10) Stop: 08/19/17 09:50 Last Admin: 08/17/17 18:59 Dose: 1 tab Physical Exam - Constitutional Appears: Non-toxic, No Acute Distress, Chronically Ill - Head Exam Head Exam: ATRAUMATIC, NORMOCEPHALIC - Eye Exam Eye Exam: EOMI, PERRL Pupil Exam: NORMAL ACCOMODATION, PERRL - ENT Exam ENT Exam: Mucous Membranes Moist, Normal External Ear Exam, TM's Normal Bilaterally - Respiratory Exam Respiratory Exam: Clear to Auscultation Bilateral, NORMAL BREATHING PATTERN. absent: Rales, Rhonchi, Wheezes - Cardiovascular Exam Cardiovascular Exam: Tachycardia, +S1, +S2 - GI/Abdominal Exam GI & Abdominal Exam: Normal Bowel Sounds, Soft. absent: Distended, Tenderness - Extremities Exam Extremities exam: Positive for: full ROM, normal inspection - Neurological Exam Neurological exam: Alert, CN II-XII Intact, Oriented x3 - Psychiatric Exam Psychiatric exam: Normal Affect, Normal Mood - Skin Skin Exam: Intact, Normal Color Results - Vital Signs Recent Vital Signs: Last Vital Signs Temp 98.4 F 08/17/17 16:13 Pulse 94 H 08/17/17 16:13 Resp 18 08/17/17 16:13 BP 142/86 08/17/17 16:13 Pulse Ox 97 08/17/17 16:13 - Labs Result Diagrams: 08/17/17 06:00 08/17/17 06:00 Labs: Laboratory Results - last 24 hr 08/17/17 08/17/17 08/17/17 06:00 06:00 06:00 WBC RBC Hgb Hct MCV MCH MCHC RDW Plt Count MPV Sodium Potassium Chloride Carbon Dioxide Anion Gap BUN Creatinine Est GFR ( Amer) Est GFR (Non-Af Amer) Random Glucose Hemoglobin A1c 6.0 Calcium Iron 28 L TIBC 177 L % Saturation 16 L Total Bilirubin AST ALT Alkaline Phosphatase Total Protein Albumin Globulin Albumin/Globulin Ratio Triglycerides 147 Cholesterol 164 LDL Cholesterol Direct 96 HDL Cholesterol 26 L Vitamin B12 396 Folate 18.2 08/17/17 08/17/17 06:00 06:00 WBC 4.4 L D RBC 2.92 L Hgb 8.7 L Hct 27.4 L MCV 93.8 MCH 29.8 MCHC 31.8 RDW 14.7 H Plt Count 162 MPV 11.8 H Sodium 140 Potassium 4.0 Chloride 102 Carbon Dioxide 27 Anion Gap 16 BUN 10 Creatinine 0.9 Est GFR ( Amer) > 60 Est GFR (Non-Af Amer) > 60 Random Glucose 94 Hemoglobin A1c Calcium 8.5 Iron TIBC % Saturation Total Bilirubin 0.4 AST 31 ALT < 6 L Alkaline Phosphatase 105 Total Protein 8.7 H Albumin 3.3 Globulin 5.4 Albumin/Globulin Ratio 0.6 L Triglycerides Cholesterol LDL Cholesterol Direct HDL Cholesterol Vitamin B12 Folate Assessment & Plan - Assessment and Plan (Free Text) Assessment: 42 yo AA female with fevers up to 103 F and tachycardia. History of lupus, rheumatoid arthritis, and hypothyroidism. The patient with leukopenia on admission. Saunders cultures sent. Chest X-ray showing no active disease. Influenza screen was negative. Started on Azithromycin. Will add Cefepime. Awaiting culture results. Supportive care. Thank you for allowing me to participate in the care of the patient, we will follow with you.
[2017-08-17] MEDS: Cefepime 1gm in NS 100ml 1 GM/100 ML BAG IVPB SCH (21:51)
--- NOTE | 2017-08-17 22:33 | CON ---
DATE: 08/17/2017 PULMONARY CONSULT REFERRING PHYSICIAN: Lynette Nayak MD. REASON FOR CONSULT: Fever up to 103, short of breath with exertion. HISTORY OF PRESENT ILLNESS: This is a 42-year-old overweight female with past medical history significant for lupus, rheumatoid arthritis, hypothyroid, chronic pain syndrome, opioids dependent, comes into ER because she ran out of her opioids prescription, but found to have a fever of 103. No headache. No rhinitis. Does not know if snore, daytime sleepy and tired though. Mild cough. No nausea. No vomiting. No dysuria. No leg pain. No leg swelling. PAST MEDICAL HISTORY: Hypothyroid, arthritis, lupus, history of vocal cord nodule removed in the past. ALLERGIES: NONE KNOWN. SOCIAL HISTORY: Denying any smoking or alcohol use. Denying any illicit drugs use. FAMILY HISTORY: No significant cardiopulmonary disease reported. MEDICATIONS: She is on Humira 40 mg subcu every 2 weeks, lorazepam 0.5 mg three times a day p.r.n. Cellcept 500 mg twice a day, cefepime 1 g every 12 hours, Percocet 5/325 one tab every 4 hours p.r.n., Plaquenil 200 mg twice a day, total Synthroid is 225 mcg daily, Zithromax 500 mg daily. REVIEW OF SYSTEMS: Not much headache. No rhinitis. Mild cough and shortness of breath. No chest pain. Does not know if snore. No nausea. No vomiting. No diarrhea. No dysuria. No leg pain, leg swelling. PHYSICAL EXAMINATION: VITAL SIGNS: T-max 103, temperature is 98, heart rate is 94, respiratory rate is 18, blood pressure 142/86, pulse ox 97% on 2 L nasal cannula. HEENT: Moist mucous membrane. Crowded airway. NECK: Supple. No JVD. No facial tenderness. Nasal mucosa looks okay. LUNGS: Have a fair airflow with rhonchi. HEART: S1 and S2. ABDOMEN: Soft, nontender. No organomegaly. EXTREMITIES: No edema. NEUROLOGICAL: Awake and alert. Follows simple command. LABORATORY DATA: Shows hemoglobin 8.7, hematocrit 27.4, WBC 4.4, platelet count is 162. INR 1.21, PTT 36. Blood gases, which is VB show pH 7.43, pCO2 of 45, O2 of 25. Sodium 140, potassium 4, chloride 102, bicarbonate 27, BUN 10, creatinine 0.9, glucose 94, calcium 8.5. Iron is 28, AST 31, ALT is less than 6, alk phos is 105, albumin is 3.3. Urine drug screen: Opioid screen is positive. Influenza A and B is negative. Microbiology: Blood culture, urine culture, there is no growth. Chest x-ray shows no active pulmonary disease reported. IMPRESSION AND PLAN: Sepsis, is this acute bronchitis. No pneumonia on the chest x-ray. History of lupus, rheumatoid arthritis, hypothyroid, had a leukopenia. Seen by Infectious Diseases, started on antibiotics. Keep head elevated at 45 degrees. Also has a significant anemia. May have a component of sleep apnea syndrome. The patient was seen by psychiatrist. We will get CAT scan of the chest, abdomen and pelvis to rule out any abscess. Thank you and we will follow with you. Elizabeth Osborne MD
--- NOTE | 2017-08-18 03:20 | PN ---
DATE: 08/17/2017 The patient is a 42-year-old female. SUBJECTIVE: The patient was seen and examined at the bedside. Looking comfortable. No nausea, vomiting. No diarrhea. No hematuria or hematochezia. No swelling of the leg. No chest pain. No palpitation. No headache. No dizziness. PHYSICAL EXAMINATION: VITAL SIGNS: T-max 103, temperature 98, heart rate 94, respiratory rate 18, blood pressure 140/80. HEENT: Head normocephalic, atraumatic. Eyes PERRLA. Extraocular muscles intact. Conjunctivae clear. Nose patent. Mucous membrane moist. NECK: Supple. No carotid bruit. No JVD or thyromegaly. CHEST: Bilaterally symmetrical. HEART: S1 and S2 positive. LUNGS: Clear to auscultation. ABDOMEN: Soft. Bowel sounds present. No organomegaly. EXTREMITIES: No edema. No cyanosis. NEUROLOGIC: Patient is awake, alert. Moving all four extremities. No focal deficit. LABORATORY DATA: Hemoglobin 8.7, hematocrit 27.4, white blood cells 4.4, platelets 162. Sodium 140, potassium 4, BUN 10, creatinine 0.9. AST 31. Drug screening is opioid screening positive. ASSESSMENT AND PLAN: Ms. Demi Corral who came with sepsis due to acute bronchitis; no pneumonia on the chest x-rays as per Dr. Osborne; history of lupus, rheumatoid arthritis, hypothyroidism, leukopenia, seen by Infectious Disease, getting antibiotics as per Infectious Disease, elevation of the head 45 degrees, history of significant anemia may be component of sleep apnea syndrome, may be anemia of chronic disease. Patient was seen by psychiatrist. Dr. Osborne ordered CAT scan of the chest, abdomen and pelvis to rule out any abscess. We will continue Humira that patient was taking before she had to come, lorazepam, CellCept, cefepime, Percocet for pain, Plaquenil. 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 Continue Synthroid, Zithromax, also getting physical therapy. We will follow up. Lynette Nayak MD DOMINICK
[2017-08-18] MEDS: Oxycodone/Acetaminophen 5/325 mg Tab PO PRN ×4 (04:22→20:56)
[2017-08-18 06:34] LABS: HEMOGLOBIN 8.2 g/dL (12.0-16.0); MEAN CELL VOLUME 91.8 fl (80.0-105.0); MEAN CORPUSCULAR HEMOGLOBIN 28.2 pg (25.0-35.0); MEAN CORPUSCULAR HGB CONC 30.7 g/dl (31.0-37.0); RBC 2.91 10^6/uL (3.5-6.1); RED CELL DISTRIBUTION WIDTH 14.4 % (11.5-14.5)
[2017-08-18 06:45] LABS: BLOOD UREA NITROGEN 10 mg/dL (7-21); CALCIUM 8.3 mg/dL (8.4-10.5); GFR AFRICAN-AMERICAN > 60; GFR NON-AFRICAN AMERICAN > 60
[2017-08-18 07:24] LABS: WHITE BLOOD COUNT 2.2 10^3/ul (4.5-11.0)
--- NOTE | 2017-08-18 09:35 | CT ---
PROCEDURE: CT scan chest dated 08/18/2017. HISTORY: Infiltrate. COMPARISON: Comparison made with prior study 05/15/2017. Comparison also made with chest radiograph dated 08/16/2017. TECHNIQUE: Contiguous axial images were obtained through the chest without intravenous contrast enhancement. Sagittal and coronal reconstructions were performed. Radiation dose (DLP): 496.78 mGy-cm. This CT exam was performed using one or more of the following dose reduction techniques: Automated exposure control, adjustment of the mA and/or kV according to patient size, and/or use of iterative reconstruction technique. FINDINGS: LUNGS: Mild scarring and atelectatic changes are seen both lung bases including the lingular and middle lobe regions. There is also a small approximately 3.7 mm elliptical shaped nodular density in the right middle lobe bordering the pleural surface axial series 3, image number 58 tiny 3.4 mm nodular density right upper lobe axial series 3, image number 54 tiny subpleural nodular density measuring 3.4 mm anterior aspect right upper lobe on axial image number 47. . Two tiny nodular densities left upper lobe measuring approximately 3.6 and 3.35 mm best seen on axial CIS images 32. Small the triangular-shaped pleural-based nodular density left upper lobe axial image number 34. Small small 4.1 mm elliptical shaped nodular density bordering the major fissure of left upper lobe also seen on axial 34-35. Small 3.3 mm somewhat translucent contreras elliptical shaped nodular density left lateral upper lobe seen on axial image number 44. Small 4.3 mm nodular density superior aspect left lower lobe seen on axial image number 49. Small 4.98 mm nodule left lung base axial image number 65. Two small nodular opacities also noted in the lingular region also seen on axial image number 65. Minor linear atelectasis some bordering the posterior pleural surface of versus with minor pleural thickening. MEDIASTINUM: Heart size within range of normal. Suspect trace pericardial effusion. At ascending thoracic aorta measures approximately 2.85 cm and descending thoracic aorta measures approximately 2.6 cm. Pulmonary trunk measures approximately 3.0 cm. Central airways are midline and patent. No large central endoluminal lesions. Few small nonspecific mediastinal lymph nodes are present. . Evaluation for hilar adenopathy limited due to the lack of circulating intravenous contrast material. PLEURA: No evidence of pleural effusion or pneumothorax. BONES: No fracture. No destructive lesion. UPPER ABDOMEN: Grossly unremarkable. OTHER FINDINGS: Re- demonstrated are multiple small to medium sized -borderline enlarged the the bilateral axillary lymph nodes. Postoperative changes of thyroidectomy IMPRESSION: Multiple small nodular densities seen throughout the upper and lower lobes including the lingular and middle lobe regions. While these changes could be postinflammatory, follow-up CT scan at 3/6 months recommended to exclude aggressive pathology. Note however on metastatic disease would be less likely in this age group though not completely excluded clinical correlation with history recommended. Follow-up CT scan in 3-6 months recommended. Mild chronic atelectasis and or scarring changes both lung bases including the lingular and middle lobe regions. Re- demonstrated are multiple small to borderline enlarged bilateral axillary lymph nodes. Postoperative changes of thyroidectomy. .
[2017-08-18] MEDS: Cefepime 1gm in NS 100ml 1 GM/100 ML BAG IVPB SCH ×2 (10:35→23:27)
[2017-08-18] MEDS: Levothyroxine 25 MCG TAB PO SCH (10:36)
[2017-08-18] MEDS: Levothyroxine 100 MCG TAB PO SCH (10:36)
--- NOTE | 2017-08-18 11:18 | CP.PCM.PCO ---
Physician Communication Note - Physician Communication Note Physician Communication Note: psychiatry signed off
[2017-08-18] MEDS ORDERED: Tuberculin 5 Units/0.1 ml Inj ID ONE (12:42)
[2017-08-18] MEDS: Azithromycin 500MG/NS 250ml 500 MG/250 ML BAG IVPB SCH (13:14)
--- NOTE | 2017-08-18 14:04 | PN ---
DATE: 08/18/2017 PULMONARY PROGRESS NOTE REFERRING PHYSICIAN: Lynette Nayak MD. SUBJECTIVE: She is lying in the bed. Overall, feels okay. Has rhinitis, postnasal drip, cough. No hemoptysis, hematemesis. No hematuria. No diarrhea reported. OBJECTIVE: GENERAL: In no acute distress. VITAL SIGNS: Temp is 98, T-max 101.1; heart rate is 86, respiratory rate is 18, blood pressure 105/69, pulse ox 100% on 2 L nasal cannula. HEENT: Moist mucous membrane. Crowded airway. NECK: Supple. No JVD. No tenderness on the maxillary area. LUNGS: Have scattered rhonchi. HEART: S1 and S2. ABDOMEN: Soft, nontender. No organomegaly. EXTREMITIES: No edema. NEUROLOGICAL: Awake and alert. Follows simple command. LABORATORY DATA: Shows hemoglobin 8.2, hematocrit 26.7, WBC 2.2, platelet count is 140. Sodium 141, potassium 4.1, chloride 102, bicarbonate 29, BUN 10, creatinine 0.8, glucose 83, ferritin 491, AST 31, ALT less than 6, alk phos is 105, albumin is 3.3, TSH 13.1. Influenza A and B have been negative. Microbiology: Blood culture and urine culture, there is no growth. CT of the chest done last night shows multiple small nodule density seen throughout the upper and lower lobe including lingula and middle lobe regions. MEDICATIONS: She is on Humira 40 mg subcu every 2 weeks, Ativan 0.5 mg three times a day p.r.n., Cellcept 500 mg twice a day, cefepime 1 g every 12 hours, Percocet 5/325 one tab every 4 hours p.r.n., Plaquenil 200 mg twice a day, Synthroid 225 mcg daily, Zithromax 500 mg daily. There is some scarring and atelectasis on the lung bases. There is also borderline enlarged bilateral axillary lymph nodes. Postoperative changes on the thyroidectomy. IMPRESSION AND PLAN: Sepsis with bilateral multilobe nodules, history of lupus, rheumatoid arthritis, hypothyroid, leukopenia, immunocompromised. Case discussed with nurse practitioner on the floor. TB Gold test is being sent. Sputum for AFB being sent. The patient is isolated. Send sputum for culture and sensitivity. Also PPD will be placed, which may not answer any question. Keep head elevated at 45 degrees. Follow up labs in the morning. Thank you and we will follow with you. Elizabeth Osborne MD
--- NOTE | 2017-08-18 21:15 | CP.PCM.PN ---
Subjective - Date & Time of Evaluation Date of Evaluation: 08/18/17 Time of Evaluation: 19:00 - Subjective Subjective: Infectious Disease Follow Up: August 18, 2017 42 yo AA female with extensive medical history of lupus, rheumatoid arthritis, and hypothyroidism. The patient with nausea and vomiting. She was found to have tachycardia and fevers up to 103 F. She appears to be fully awake and alert. Noted Pulmonary consult and notes. CT chest showing multilobar nodular densities. Afebrile today. Objective - Vital Signs/Intake and Output Vital Signs (last 24 hours): Temp Pulse Resp BP Pulse Ox 98.1 F 86 18 105/69 100 08/18/17 08:25 08/18/17 08:25 08/18/17 08:25 08/18/17 08:25 08/18/17 08:25 Intake and Output: 08/18/17 08/19/17 18:59 06:59 Intake Total 480 Balance 480 - Medications Medications: Current Medications Hydroxychloroquine Sulfate (Plaquenil) 200 mg PO BID JENNIE PRN Reason: Protocol Last Admin: 08/18/17 18:44 Dose: 200 mg Azithromycin (Zithromax 500mg In Ns) 500 mg in 250 mls @ 167 mls/hr IVPB DAILY JENNIE PRN Reason: Protocol Last Admin: 08/18/17 13:14 Dose: 167 mls/hr Cefepime HCl (Maxipime 1gm) 1 gm in 100 mls @ 100 mls/hr IVPB Q12 JENNIE PRN Reason: Protocol Last Admin: 08/18/17 10:35 Dose: 100 mls/hr Levothyroxine Sodium (Synthroid) 200 mcg PO DAILY JENNIE Last Admin: 08/18/17 10:36 Dose: 200 mcg Levothyroxine Sodium (Synthroid) 25 mcg PO DAILY JENNIE Last Admin: 08/18/17 10:36 Dose: 25 mcg Lorazepam (Ativan) 0.5 mg PO TID PRN; Protocol PRN Reason: Restlessness Mycophenolate Mofetil (Cellcept Cap) 500 mg PO BID JENNIE Last Admin: 08/18/17 18:40 Dose: 500 mg Non-Formulary Medication (Adalimumab [Humira]) 40 mg SC Q2W JENNIE Oxycodone/Acetaminophen (Percocet 5/325 Mg Tab) 1 tab PO Q4H PRN PRN Reason: Pain, severe (8-10) Stop: 08/19/17 09:50 Last Admin: 08/18/17 20:56 Dose: 1 tab - Labs Labs: 08/18/17 06:00 08/18/17 06:00 PT 13.8 SECONDS (9.4-12.5) H 08/15/17 23:40 INR 1.21 (0.93-1.08) H 08/15/17 23:40 APTT 36.4 Seconds (25.1-36.5) 08/15/17 23:40 - Constitutional Appears: Non-toxic, No Acute Distress, Chronically Ill - Head Exam Head Exam: ATRAUMATIC, NORMOCEPHALIC - Eye Exam Eye Exam: EOMI, PERRL Pupil Exam: NORMAL ACCOMODATION, PERRL - ENT Exam ENT Exam: Mucous Membranes Moist, Normal External Ear Exam, TM's Normal Bilaterally - Neck Exam Neck Exam: Full ROM, Normal Inspection - Respiratory Exam Respiratory Exam: Clear to Ausculation Bilateral, NORMAL BREATHING PATTERN. absent: Rales, Rhonchi, Wheezes - Cardiovascular Exam Cardiovascular Exam: REGULAR RHYTHM, RRR, +S1, +S2 - GI/Abdominal Exam GI & Abdominal Exam: Soft, Normal Bowel Sounds. absent: Distended, Tenderness - Extremities Exam Extremities Exam: Full ROM, Normal Inspection - Neurological Exam Neurological Exam: Alert, Awake, CN II-XII Intact, Oriented x3 - Psychiatric Exam Psychiatric exam: Normal Affect, Normal Mood - Skin Skin Exam: Intact, Normal Color Assessment and Plan - Assessment and Plan (Free Text) Assessment: 42 yo AA female with fevers up to 103 F and tachycardia. History of lupus, rheumatoid arthritis, and hypothyroidism. The patient with leukopenia on admission. Saunders cultures sent. Chest X-ray showing no active disease. Influenza screen was negative. Started on Azithromycin. Added Cefepime. Awaiting culture results. CT scan showing multiple nodular densities in multiple lung bowen. Rule out TB. Given improvements in temperature, TB is a less likely diagnosis. If PPD or Quantiferon is positive, this does NOT prove active TB case. Isolation until TB ruled out. Supportive care. Thank you for allowing me to participate in the care of the patient, we will follow with you.
--- NOTE | 2017-08-19 04:32 | PN ---
DATE: 08/18/2017 SUBJECTIVE: Patient was seen and examined at the bedside. She is on isolation. was sitting at the bedside also. Overall she is better. Has rhinitis, postnasal drip, coughing. No fever. No chills. No hematuria, no hematochezia. PHYSICAL EXAMINATION: VITAL SIGNS: Temperature 98, T-max 101.1, heart rate 86, respiratory rate 18, blood pressure 105/69, pulse oximetry 100% on 2 L nasal cannula. HEENT: Head normocephalic, atraumatic. Eyes PERRLA. Extraocular muscles intact. Conjunctivae clear. Nose patent. Mucous membrane moist. NECK: Supple. No carotid bruit. No JVD or thyromegaly. HEART: S1 and S2 positive. ABDOMEN: Soft, nontender. No organomegaly. EXTREMITIES: No edema. No cyanosis. NEUROLOGIC: Patient is awake and alert. Follows simple commands. LABORATORY DATA: White blood cells 8.7, hemoglobin noted , platelets 140. Sodium 141, potassium 4.1, BUN 10, creatinine 0.8. AST 31, ALT less than 6. Blood and urine cultures have no growth. CT of chest done, shows multiple small nodule density, seen throughout the upper and lower lobes including lingula and middle lobe regions. ASSESSMENT AND PLAN: Ms. Demi Corral is a 42-year-old lady came with shortness of breath, coughing, has pulmonary nodules. She is on Humira; sepsis with bilateral multilobular nodules, history of lupus, rheumatoid arthritis, hypothyroidism, leukopenia, immunocompromised. TB gold test is being sent. Sputum for AFB being sent. The patient is isolated. Sent sputum for culture and sensitivity. Also PPD will be placed, which may not answer any question. Keeping head elevated at 45 degree. d/d with patient and patient's . Gastrointestinal and deep vein thrombosis prophylaxis. Repeat labs. We will follow up. Lynette Nayak MD [facility]
[2017-08-19] MEDS: Oxycodone/Acetaminophen 5/325 mg Tab PO PRN ×3 (05:16→22:24)
[2017-08-19 07:25] LABS: HEMOGLOBIN 9.2 g/dL (12.0-16.0); MEAN CELL VOLUME 90.8 fl (80.0-105.0); MEAN CORPUSCULAR HEMOGLOBIN 28.3 pg (25.0-35.0); MEAN CORPUSCULAR HGB CONC 31.2 g/dl (31.0-37.0); MEAN PLATELET VOLUME 10.7 fl (7.0-11.0); RBC 3.25 10^6/uL (3.5-6.1); RED CELL DISTRIBUTION WIDTH 14.1 % (11.5-14.5)
[2017-08-19 07:48] LABS: ALB/GLOB RATIO 0.6 (1.1-1.8); ALBUMIN 3.7 g/dL (3.0-4.8); ALT/SGPT < 6 U/L (7-56); AST/SGOT 37 U/L (14-36); BLOOD UREA NITROGEN 9 mg/dL (7-21); CALCIUM 8.9 mg/dL (8.4-10.5); GFR AFRICAN-AMERICAN > 60; GFR NON-AFRICAN AMERICAN > 60
[2017-08-19 07:51] LABS: WHITE BLOOD COUNT 2.9 10^3/ul (4.5-11.0)
--- NOTE | 2017-08-19 10:43 | CON ---
DATE: 08/19/2017 REASON FOR CONSULTATION: Anemia, leukopenia. HISTORY OF PRESENT ILLNESS: Ms. Corral is a 42-year-old female admitted to the hospital with high fever of 103. She has history of lupus, rheumatoid arthritis. Being treated with Humira, Cellcept. She also has chronic pain, on oxycodone. White count lowest during the hospitalization is 2.2, hemoglobin of 8.2. Iron studies done showed severe anemia with iron of 28. Iron saturation low at 16%. CT chest done showed multiple small nodules, being followed by Dr. Jose STEVENS. PAST MEDICAL HISTORY: Rheumatoid arthritis, lupus, history of recurrent pneumonia, hypothyroidism. PAST SURGICAL HISTORY: Orthopedic surgery, ruptured Achilles tendon, removal of vocal cord nodule. PERSONAL HISTORY: Never smoked. No history of alcohol abuse. ALLERGIES: ASPIRIN. HOME MEDICATIONS: Humira, Plaquenil, levothyroxine, Cellcept, Percocet. REVIEW OF SYSTEMS: As per HPI. Rest of 12-point review of systems reviewed negative. PHYSICAL EXAMINATION: GENERAL: Comfortable in bed, in no acute distress. VITAL SIGNS: Temperature 98.7, heart rate 100 per minute, respiratory rate 18 per minute, blood pressure 110/70. HEENT: Pallor positive. NECK: No lymphadenopathy. CHEST: Air entry present and equal bilateral. No added sound. CARDIOVASCULAR: S1, S2 normal. No murmur. No gallop. ABDOMEN: Soft, nontender. No hepatosplenomegaly. EXTREMITIES: No edema. SPINE: Nontender. LABORATORY DATA: White count 2.9, hemoglobin 9.2, hematocrit 29.5, platelet 171. Iron 28, iron saturation 16%. LFTs within normal limits. Creatinine 0.9. ASSESSMENT: 1. Leukopenia. 2. Anemia. 3. Lupus/rheumatoid arthritis. 4. Fever. 5. Lung nodules. 6. Immunocompromised due to Humira, cellcept. PLAN: 1. She has anemia, which is multifactorial; iron deficiency, anemia of chronic disease. Given one dose of IV iron 200 mg. She will need continuation of IV iron to replete iron . Iron deficiency likely related to iron absorption defect due to chronic disease / dyserythropoiesis due to chronic disease. 2. Leukopenia might be due to bone marrow suppression related to infection. She is on Cellcept and Humira. Rheumatoid arthritis can also due to neutropenia, autoimmune. Antineutrophil antibodies will be sent. 3. Renal functions within normal limits. 4. Lung nodules being followed by ID. Workup in progress. She is high risk for fungal and viral infections as she is immunocompromised. Thank you, Dr. Nayak for allowing us to participate in Ms. Corral's care. Bernice Hernandez MD [facility]
[2017-08-19] MEDS: Cefepime 1gm in NS 100ml 1 GM/100 ML BAG IVPB SCH ×2 (14:48→22:24)
[2017-08-19] MEDS: Levothyroxine 25 MCG TAB PO SCH (14:49)
[2017-08-19] MEDS: Azithromycin 500MG/NS 250ml 500 MG/250 ML BAG IVPB SCH (14:49)
[2017-08-19] MEDS: Levothyroxine 100 MCG TAB PO SCH (14:49)
--- NOTE | 2017-08-19 19:01 | CP.PCM.PN ---
Subjective - Date & Time of Evaluation Date of Evaluation: 08/19/17 Time of Evaluation: 17:15 - Subjective Subjective: Infectious Disease Follow Up: August 18, 2017 42 yo AA female with extensive medical history of lupus, rheumatoid arthritis, and hypothyroidism. The patient with nausea and vomiting. She was found to have tachycardia and fevers up to 103 F. She appears to be fully awake and alert. Noted Pulmonary consult and notes. CT chest showing multilobar nodular densities. Afebrile today. Patient with leukopenia. Workup for Tuberculosis in progress. The patient was unable to produce sputum for testing. Awaiting PPD and Quantiferon results. Objective - Vital Signs/Intake and Output Vital Signs (last 24 hours): Temp Pulse Resp BP Pulse Ox 98.2 F 70 18 124/89 100 08/19/17 14:00 08/19/17 14:00 08/19/17 14:00 08/19/17 14:00 08/19/17 14:00 Intake and Output: 08/19/17 08/19/17 06:59 18:59 Intake Total 540 Balance 540 - Medications Medications: Current Medications Hydroxychloroquine Sulfate (Plaquenil) 200 mg PO BID JENNIE PRN Reason: Protocol Last Admin: 08/19/17 14:49 Dose: 200 mg Azithromycin (Zithromax 500mg In Ns) 500 mg in 250 mls @ 167 mls/hr IVPB DAILY JENNIE PRN Reason: Protocol Last Admin: 08/19/17 14:49 Dose: 167 mls/hr Cefepime HCl (Maxipime 1gm) 1 gm in 100 mls @ 100 mls/hr IVPB Q12 JENNIE PRN Reason: Protocol Last Admin: 08/19/17 14:48 Dose: 100 mls/hr Levothyroxine Sodium (Synthroid) 200 mcg PO DAILY JENNIE Last Admin: 08/19/17 14:49 Dose: 200 mcg Levothyroxine Sodium (Synthroid) 25 mcg PO DAILY JENNIE Last Admin: 08/19/17 14:49 Dose: 25 mcg Lorazepam (Ativan) 0.5 mg PO TID PRN; Protocol PRN Reason: Restlessness Last Admin: 08/18/17 23:27 Dose: 0.5 mg Mycophenolate Mofetil (Cellcept Cap) 500 mg PO BID JENNIE Last Admin: 08/19/17 14:48 Dose: 500 mg Non-Formulary Medication (Adalimumab [Humira]) 40 mg SC Q2W JENNIE Oxycodone/Acetaminophen (Percocet 5/325 Mg Tab) 1 tab PO Q6H PRN PRN Reason: Pain, severe (8-10) Stop: 08/22/17 13:18 Last Admin: 08/19/17 14:45 Dose: 1 tab - Labs Labs: 08/19/17 06:30 08/19/17 06:30 PT 13.8 SECONDS (9.4-12.5) H 08/15/17 23:40 INR 1.21 (0.93-1.08) H 08/15/17 23:40 APTT 36.4 Seconds (25.1-36.5) 08/15/17 23:40 - Constitutional Appears: Non-toxic, No Acute Distress, Chronically Ill - Head Exam Head Exam: ATRAUMATIC, NORMOCEPHALIC - Eye Exam Eye Exam: EOMI, PERRL Pupil Exam: NORMAL ACCOMODATION, PERRL - ENT Exam ENT Exam: Mucous Membranes Moist, Normal External Ear Exam, TM's Normal Bilaterally - Neck Exam Neck Exam: Full ROM, Normal Inspection - Respiratory Exam Respiratory Exam: Clear to Ausculation Bilateral, NORMAL BREATHING PATTERN. absent: Rales, Rhonchi, Wheezes - Cardiovascular Exam Cardiovascular Exam: REGULAR RHYTHM, RRR, +S1, +S2 - GI/Abdominal Exam GI & Abdominal Exam: Soft, Normal Bowel Sounds. absent: Distended, Tenderness - Extremities Exam Extremities Exam: Full ROM, Normal Inspection - Neurological Exam Neurological Exam: Alert, Awake, CN II-XII Intact, Oriented x3 - Psychiatric Exam Psychiatric exam: Normal Affect, Normal Mood - Skin Skin Exam: Intact, Normal Color Assessment and Plan - Assessment and Plan (Free Text) Assessment: 42 yo AA female with fevers up to 103 F and tachycardia. History of lupus, rheumatoid arthritis, and hypothyroidism. The patient with leukopenia on admission. Saunders cultures sent. Chest X-ray showing no active disease. Influenza screen was negative. Started on Azithromycin. Added Cefepime. Awaiting culture results. CT scan showing multiple nodular densities in multiple lung bowen. Rule out TB. Given improvements in temperature, TB is a less likely diagnosis. If PPD or Quantiferon is positive, this does NOT prove active TB case. Isolation until TB ruled out. Supportive care. Thank you for allowing me to participate in the care of the patient, we will follow with you.
--- NOTE | 2017-08-19 21:13 | PN ---
DATE: 08/19/2017 PULMONARY PROGRESS NOTE REFERRING PHYSICIAN: Lynette Nayak MD. SUBJECTIVE: She is lying in the bed, head at 45 degrees. Could not produce any sputum today. Fever is better. No nausea. No vomiting. No diarrhea, leg pain, leg swelling. OBJECTIVE: GENERAL: In no acute distress. VITAL SIGNS: Temp is 98, heart rate is 70, respiratory rate is 18, blood pressure 124/89, pulse ox 100% on room air. HEENT: Moist mucous membrane. Crowded airway. NECK: Supple. No JVD. LUNGS: Have a few scattered rhonchi. HEART: S1 and S2. ABDOMEN: Soft, nontender. No organomegaly. EXTREMITIES: There is no edema. NEUROLOGICAL: Awake and alert. Follows simple command. LABORATORY DATA: Shows hemoglobin 9.2, hematocrit 29.5, WBC 2.9, platelet count is 171. Sodium 143, potassium 4.3, chloride 105, bicarbonate 24, BUN 9, creatinine 0.7, glucose is 92, calcium is 8.9, AST 37, ALT less than 6, alk phos is 137, albumin is 3.7. TSH 13. Microbiology: Blood culture and urine culture, there is no growth so far. MEDICATIONS: She is on Humira 40 mg subcu every 2 weeks, lorazepam 0.5 mg three times a day p.r.n., Cellcept 500 mg twice a day, cefepime 1 g every 12 hours, Percocet 5/325 one tab every 6 hours p.r.n., Plaquenil 200 mg twice a day, Synthroid total is 225 mcg daily, Zithromax 500 mg daily. IMPRESSION AND PLAN: Sepsis with bilateral multilobe nodules, history of lupus, rheumatoid arthritis, hypothyroid, leukopenia, anemia, immunocompromised. Clinically, she is improved. No more fever since yesterday. She clinically feels better. TB Gold test is being sent. Spoke to nursing staff. We will induce sputum for AFB and culture and sensitivity also. Send sedimentation rate and C-reactive protein. Being followed by Oncology, Infectious Diseases. Thank you and we will follow with you. Elizabeth Osborne MD [facility] # [id number]
--- NOTE | 2017-08-20 01:55 | PN ---
DATE: 08/19/2017 SUBJECTIVE: The patient is 42-year-old female. Patient was seen and examined at the bedside on 08/19/2017. Looking comfortable, still on isolation. No nausea. No vomiting. No diarrhea. No swelling of the leg, still complaining about generalized body aches, arthritic pain. PHYSICAL EXAMINATION: VITAL SIGNS: Temperature 98, heart rate 70, respiratory rate 18, blood pressure 124/80, pulse oximetry 100% on room air. HEENT: Head normocephalic, atraumatic. Eyes PERRLA. Extraocular muscles intact. Conjunctivae clear. Nose patent. Mucous membrane moist. NECK: Supple. No carotid bruit. No JVD or thyromegaly. CHEST: Bilaterally symmetrical. HEART: S1 and S2 positive. LUNGS: Clear to auscultation. ABDOMEN: Soft, bowel sounds present. No organomegaly. EXTREMITIES: No edema. No cyanosis. NEUROLOGIC: Patient is awake and alert. Moving all 4 extremities. No focal deficits. LABORATORY DATA: Hemoglobin 9.2, hematocrit 29.5, white blood cells 2.9, platelets 171. Sodium 141, potassium 4.3, BUN 9, creatinine 0.7, glucose 92. TSH 13. MEDICATIONS: Humira, lorazepam, CellCept, cefepime, Percocet, Plaquenil, Synthroid, azithromycin. ASSESSMENT AND PLAN: Ms. Demi Corral is a 42-year-old female with sepsis with bilateral multilobular nodules, history of lupus, rheumatoid arthritis, hypothyroidism, leukopenia, anemia. The patient is immunocompromised. Clinically, she is improving. No more fever, feels better. TB gold test is pending. The patient is supposed to give a sample of sputum. According to them, she is not able to produce sputum. Discussion done with nursing staff. We will continue to do sputum culture and sensitivity also. Sent rheumatic workup also. Oncology is on the case and Infectious Disease. Gastrointestinal and deep vein thrombosis prophylaxis. Repeat labs. We will follow up. Lynette Nayak MD [facility]
[2017-08-20] MEDS: Oxycodone/Acetaminophen 5/325 mg Tab PO PRN ×4 (05:11→20:16)
[2017-08-20 07:37] LABS: HEMOGLOBIN 8.4 g/dL (12.0-16.0); MEAN CELL VOLUME 89.9 fl (80.0-105.0); MEAN CORPUSCULAR HEMOGLOBIN 28.4 pg (25.0-35.0); MEAN CORPUSCULAR HGB CONC 31.6 g/dl (31.0-37.0); MEAN PLATELET VOLUME 11.2 fl (7.0-11.0); RBC 2.96 10^6/uL (3.5-6.1)
[2017-08-20 07:45] LABS: WHITE BLOOD COUNT 2.5 10^3/ul (4.5-11.0)
[2017-08-20] MEDS: Cefepime 1gm in NS 100ml 1 GM/100 ML BAG IVPB SCH ×2 (09:14→22:51)
[2017-08-20] MEDS: Levothyroxine 25 MCG TAB PO SCH (09:14)
[2017-08-20] MEDS: Levothyroxine 100 MCG TAB PO SCH (09:14)
[2017-08-20] MEDS: Azithromycin 500MG/NS 250ml 500 MG/250 ML BAG IVPB SCH (09:15)
--- NOTE | 2017-08-20 16:19 | CP.PCM.CON ---
<Sheila Bledsoe - Last Filed: 08/20/17 19:54> History of Present Illness - History of Present Illness History of Present Illness: Seen and examined at the bedside earlier this afternoon, chart review. Request for GI consult is for anemia/positive guaiac HPI: This is a 42-year-old female with a past medical history of arthritis, lupus, hypothyroidism , chronic pain syndrome with opioid dependency initially came to the emergency room because patient ran out of her opioid a prescription. During evaluation in the ER she was found to have fever, SOB, coughing. She had a chest x-ray which did not show any acute findings. A CT scan of the chest was done which showed multiple small nodules density in the upper and lower lobe base. Patient has history of Iron Deficiency Anemia and as per patient she was started on oral iron which she took 2 days before she came to the hospital. Patient denies ever having hematology evaluation, never had endoscopy or colonoscopy. Patient endorse that when she had given stool sample she had not had a bowel movement since admission and she did strain to have a bowel movement but the stool felt soft and it initially appeared dark but no bright red blood per rectum. Denies any symptoms of nausea, vomiting, or abdominal pain. Occasional dyspepsia, denies any history of NSAID use as she is allergic except she stated that prior to admission she did take some type of NSAID and had a reaction. No complaints of any weight loss or loss of appetite. Past medical history:rheumatoid arthritis, lupus, hypothyroidism, chronic pain syndrome with opioid dependency Surgical history: removal of vocal cord, denies any cardiac procedures Allergies: NSAIDs Family history: Denies Social history: Denies tobacco use, no EtOH abuse or illicit drugs Medications: Reviewed as per MAR ROS: Systems reviewed with positive finding see HPI Past Patient History - Infectious Disease Hx of Infectious Diseases: None - Tetanus Immunizations Tetanus Immunization: Up to Date - Past Social History Smoking Status: Never Smoked - CARDIAC Hx Hypercholesterolemia: Yes - PULMONARY Hx Pneumonia: Yes - NEUROLOGICAL Hx Neurological Disorder: No - HEENT Hx HEENT Problems: No - RENAL Hx Chronic Kidney Disease: No - ENDOCRINE/METABOLIC Hx Hypothyroidism: Yes Hx Systemic Lupus Erythematosus: Yes - HEMATOLOGICAL/ONCOLOGICAL Other/Comment: lupus - INTEGUMENTARY Hx Dermatological Problems: No - MUSCULOSKELETAL/RHEUMATOLOGICAL Hx Falls: No - GASTROINTESTINAL Hx Gastrointestinal Disorders: No - GENITOURINARY/GYNECOLOGICAL Hx Incontinence: Yes - PSYCHIATRIC Hx Substance Use: No - SURGICAL HISTORY Hx Surgeries: Yes Other/Comment: L ACHILLES TENDON REPAIR, UNKNOWN RT ANKLE SX - ANESTHESIA Hx Anesthesia: Yes Meds Allergies/Adverse Reactions: Allergies Allergy/AdvReac Type Severity Reaction Status Date / Time aspirin Allergy RASH Verified 05/15/17 09:28 - Medications Medications: Current Medications Hydroxychloroquine Sulfate (Plaquenil) 200 mg PO BID JENNIE PRN Reason: Protocol Last Admin: 08/20/17 09:14 Dose: 200 mg Azithromycin (Zithromax 500mg In Ns) 500 mg in 250 mls @ 167 mls/hr IVPB DAILY JENNIE PRN Reason: Protocol Last Admin: 08/20/17 09:15 Dose: 167 mls/hr Cefepime HCl (Maxipime 1gm) 1 gm in 100 mls @ 100 mls/hr IVPB Q12 JENNIE PRN Reason: Protocol Last Admin: 08/20/17 09:14 Dose: 100 mls/hr Levothyroxine Sodium (Synthroid) 200 mcg PO DAILY [facility] Last Admin: 08/20/17 09:14 Dose: 200 mcg Levothyroxine Sodium (Synthroid) 25 mcg PO DAILY [facility] Last Admin: 08/20/17 09:14 Dose: 25 mcg Lorazepam (Ativan) 0.5 mg PO TID PRN; Protocol PRN Reason: Restlessness Last Admin: 08/19/17 22:38 Dose: 0.5 mg Mycophenolate Mofetil (Cellcept Cap) 500 mg PO BID [facility] Last Admin: 08/20/17 09:14 Dose: 500 mg Non-Formulary Medication (Adalimumab [Humira]) 40 mg SC Q2W [facility] Oxycodone/Acetaminophen (Percocet 5/325 Mg Tab) 1 tab PO Q4H PRN PRN Reason: Pain, severe (8-10) Stop: 08/22/17 13:18 Physical Exam - Constitutional Appears: No Acute Distress - Head Exam Head Exam: NORMOCEPHALIC - Eye Exam Eye Exam: Normal appearance. absent: Scleral icterus - ENT Exam ENT Exam: Mucous Membranes Moist - Neck Exam Neck exam: Positive for: Normal Inspection - Respiratory Exam Respiratory Exam: Decreased Breath Sounds, Rhonchi, NORMAL BREATHING PATTERN. absent: Rales, Wheezes, Respiratory Distress - Cardiovascular Exam Cardiovascular Exam: +S1, +S2 - GI/Abdominal Exam GI & Abdominal Exam: Normal Bowel Sounds, Soft. absent: Guarding, Rebound, Tenderness - Extremities Exam Extremities exam: Positive for: pedal pulses present. Negative for: calf tenderness, pedal edema - Neurological Exam Neurological exam: Alert, Oriented x3 - Skin Skin Exam: Dry, Warm Results - Vital Signs Recent Vital Signs: Last Vital Signs Temp 98 F 08/20/17 06:00 Pulse 68 08/20/17 06:00 Resp 20 08/20/17 06:00 BP 156/77 H 08/20/17 06:00 Pulse Ox 100 08/20/17 06:00 - Labs Result Diagrams: 08/20/17 07:15 08/19/17 06:30 Labs: Laboratory Results - last 24 hr 08/19/17 08/20/17 08/20/17 12:35 07:15 07:15 WBC 2.5 L* RBC 2.96 L Hgb 8.4 L Hct 26.6 L MCV 89.9 MCH 28.4 MCHC 31.6 RDW 14.0 Plt Count 146 MPV 11.2 H ESR 150 H C-Reactive Protein 57.70 H Stool Occult Blood Positive H Assessment & Plan - Assessment and Plan (Free Text) Assessment: Assessment: Anemia, iron deficiency Positive guiac, rule out GI bleed differentials to consider is peptic ulcer disease, angiodysplasia Sepsis Pulmonary nodules, rule out TB Rheumatoid arthritis Lupus Hypothyroidism Plan: Trend H&H and monitor for overt GI bleed Discussed with patient and son at bedside may benefit from endoscopy and colonoscopy in view of history of anemia and guiac positive when patient is more optimal. Hematology follow-up Diet as tolerated TB Quanterferion pending On Respiratory isolation Consider CT scan of abdomen and pelvis with oral and IV contrast for further evaluation. Renal functions reviewed. Thank you for this consult and for allowing us to participate in your patient's care, further recommendations based upon clinical course. Seen and discussed with Dr. Jc. <Gino Jc V - Last Filed: 08/21/17 03:36> Meds - Medications Medications: Current Medications Hydroxychloroquine Sulfate (Plaquenil) 200 mg PO BID JENNIE PRN Reason: Protocol Last Admin: 08/20/17 17:19 Dose: 200 mg Azithromycin (Zithromax 500mg In Ns) 500 mg in 250 mls @ 167 mls/hr IVPB DAILY JENNIE PRN Reason: Protocol Last Admin: 08/20/17 09:15 Dose: 167 mls/hr Cefepime HCl (Maxipime 1gm) 1 gm in 100 mls @ 100 mls/hr IVPB Q12 JENNIE PRN Reason: Protocol Last Admin: 08/20/17 22:51 Dose: 100 mls/hr Levothyroxine Sodium (Synthroid) 200 mcg PO DAILY JENNIE Last Admin: 08/20/17 09:14 Dose: 200 mcg Levothyroxine Sodium (Synthroid) 25 mcg PO DAILY JENNIE Last Admin: 08/20/17 09:14 Dose: 25 mcg Lorazepam (Ativan) 0.5 mg PO TID PRN; Protocol PRN Reason: Restlessness Last Admin: 08/20/17 22:51 Dose: 0.5 mg Mycophenolate Mofetil (Cellcept Cap) 500 mg PO BID JENNIE Last Admin: 08/20/17 17:19 Dose: 500 mg Non-Formulary Medication (Adalimumab [Humira]) 40 mg SC Q2W JENNIE Oxycodone/Acetaminophen (Percocet 5/325 Mg Tab) 1 tab PO Q4H PRN PRN Reason: Pain, severe (8-10) Stop: 08/22/17 13:18 Last Admin: 08/21/17 01:46 Dose: 1 tab Results - Vital Signs Recent Vital Signs: Last Vital Signs Temp 97.8 F 08/20/17 22:00 Pulse 79 08/20/17 22:00 Resp 20 08/20/17 22:00 BP 113/82 08/20/17 22:00 Pulse Ox 99 08/20/17 22:00 - Labs Result Diagrams: 08/20/17 07:15 08/19/17 06:30 Labs: Laboratory Results - last 24 hr 08/19/17 08/20/17 08/20/17 12:35 07:15 07:15 WBC 2.5 L* RBC 2.96 L Hgb 8.4 L Hct 26.6 L MCV 89.9 MCH 28.4 MCHC 31.6 RDW 14.0 Plt Count 146 MPV 11.2 H ESR 150 H C-Reactive Protein 57.70 H Stool Occult Blood Positive H Attending/Attestation - Attestation I have personally seen and examined this patient.: Yes I have fully participated in the care of the patient.: Yes I have reviewed all pertinent clinical information: Yes Notes (Text): parisa 08/21/17 03:24
--- NOTE | 2017-08-20 17:02 | CP.PCM.PN ---
Subjective - Date & Time of Evaluation Date of Evaluation: 08/20/17 Time of Evaluation: 15:00 - Subjective Subjective: Infectious Disease Follow Up: August 20, 2017 42 yo AA female with extensive medical history of lupus, rheumatoid arthritis, and hypothyroidism. The patient with nausea and vomiting. She was found to have tachycardia and fevers up to 103 F. She appears to be fully awake and alert. Noted Pulmonary consult and notes. CT chest showing multilobar nodular densities. Afebrile today. Patient with leukopenia. Workup for Tuberculosis in progress. The patient was unable to produce sputum for testing. Awaiting PPD and Quantiferon results. PPD negative. IF Quantiferon negative, risk for TB is extremely small. Clinically the patient is better. Objective - Vital Signs/Intake and Output Vital Signs (last 24 hours): Temp Pulse Resp BP Pulse Ox 98 F 68 20 156/77 H 100 08/20/17 06:00 08/20/17 06:00 08/20/17 06:00 08/20/17 06:00 08/20/17 06:00 Intake and Output: 08/20/17 08/20/17 06:59 18:59 Output Total 0 Balance 0 - Medications Medications: Current Medications Hydroxychloroquine Sulfate (Plaquenil) 200 mg PO BID JENNIE PRN Reason: Protocol Last Admin: 08/20/17 09:14 Dose: 200 mg Azithromycin (Zithromax 500mg In Ns) 500 mg in 250 mls @ 167 mls/hr IVPB DAILY JENNIE PRN Reason: Protocol Last Admin: 08/20/17 09:15 Dose: 167 mls/hr Cefepime HCl (Maxipime 1gm) 1 gm in 100 mls @ 100 mls/hr IVPB Q12 JENNIE PRN Reason: Protocol Last Admin: 08/20/17 09:14 Dose: 100 mls/hr Levothyroxine Sodium (Synthroid) 200 mcg PO DAILY JENNIE Last Admin: 08/20/17 09:14 Dose: 200 mcg Levothyroxine Sodium (Synthroid) 25 mcg PO DAILY JENNIE Last Admin: 08/20/17 09:14 Dose: 25 mcg Lorazepam (Ativan) 0.5 mg PO TID PRN; Protocol PRN Reason: Restlessness Last Admin: 08/19/17 22:38 Dose: 0.5 mg Mycophenolate Mofetil (Cellcept Cap) 500 mg PO BID JENNIE Last Admin: 08/20/17 09:14 Dose: 500 mg Non-Formulary Medication (Adalimumab [Humira]) 40 mg SC Q2W [facility] Oxycodone/Acetaminophen (Percocet 5/325 Mg Tab) 1 tab PO Q4H PRN PRN Reason: Pain, severe (8-10) Stop: 08/22/17 13:18 Last Admin: 08/20/17 16:11 Dose: 1 tab - Labs Labs: 08/20/17 07:15 08/19/17 06:30 PT 13.8 SECONDS (9.4-12.5) H 08/15/17 23:40 INR 1.21 (0.93-1.08) H 08/15/17 23:40 APTT 36.4 Seconds (25.1-36.5) 08/15/17 23:40 - Constitutional Appears: Non-toxic, No Acute Distress, Chronically Ill - Head Exam Head Exam: ATRAUMATIC, NORMOCEPHALIC - Eye Exam Eye Exam: EOMI, PERRL Pupil Exam: NORMAL ACCOMODATION, PERRL - ENT Exam ENT Exam: Mucous Membranes Moist, Normal External Ear Exam, TM's Normal Bilaterally - Neck Exam Neck Exam: Full ROM, Normal Inspection - Respiratory Exam Respiratory Exam: Clear to Ausculation Bilateral, NORMAL BREATHING PATTERN. absent: Rales, Rhonchi, Wheezes - Cardiovascular Exam Cardiovascular Exam: REGULAR RHYTHM, RRR, +S1, +S2 - GI/Abdominal Exam GI & Abdominal Exam: Soft, Normal Bowel Sounds. absent: Distended, Tenderness - Extremities Exam Extremities Exam: Full ROM, Normal Inspection - Neurological Exam Neurological Exam: Alert, Awake, CN II-XII Intact, Oriented x3 - Psychiatric Exam Psychiatric exam: Normal Affect, Normal Mood - Skin Skin Exam: Intact, Normal Color Assessment and Plan - Assessment and Plan (Free Text) Assessment: 42 yo AA female with fevers up to 103 F and tachycardia. History of lupus, rheumatoid arthritis, and hypothyroidism. The patient with leukopenia on admission. Saunders cultures sent. Chest X-ray showing no active disease. Influenza screen was negative. Started on Azithromycin. Added Cefepime. Awaiting culture results. CT scan showing multiple nodular densities in multiple lung bowen. Rule out TB. Given improvements in temperature, TB is a less likely diagnosis. If PPD or Quantiferon is positive, this does NOT prove active TB case. Isolation until TB ruled out. PPD negative. Patient afebrile for the last few days. Leukopenia. Awaiting Quantiferon results. Unclear to me if leukopenia is her normal state as she has had leukopenia on multiple hospitalizations here. Supportive care. Thank you for allowing me to participate in the care of the patient, we will follow with you.
--- NOTE | 2017-08-20 19:23 | PN ---
DATE: 08/20/2017 PULMONARY PROGRESS NOTE REFERRING PHYSICIAN: Lynette Nayak MD. SUBJECTIVE: She is lying in the bed, head at 45 degrees. No headache. No rhinitis. No cough. No nausea. No vomiting, diarrhea, leg pain, leg swelling. OBJECTIVE: GENERAL: In no acute distress. VITAL SIGNS: Temp is 98, heart rate is 68, respiratory rate is 20, blood pressure 156/77, pulse ox 100% on room air. HEENT: Moist mucous membrane. Crowded airway. NECK: Supple. No JVD. LUNGS: Have a fair airflow with rhonchi. HEART: S1 and S2. ABDOMEN: Soft and nontender. No organomegaly. EXTREMITIES: No edema. NEUROLOGICAL: Awake and alert. Follows simple command. LABORATORY DATA: Shows hemoglobin 8.4, hematocrit 26.6, WBC 2.5, platelet count is 146. Sed rate is 150. C-reactive protein is 57. Microbiology: Blood culture, urine culture, there is no growth. MEDICATIONS: She is on Humira 40 mg subcu every 2 weeks, Ativan 0.5 mg three times a day p.r.n., Cellcept 500 mg three times a day, cefepime 1 g IV every 12 hours, Percocet 5/325 every 4 hours p.r.n., Plaquenil 200 mg twice a day, Synthroid 225 mcg daily, Zithromax 500 mg daily. IMPRESSION AND PLAN: Sepsis with bilateral multilobe nodular infiltrate, has a lupus, rheumatoid arthritis, hypothyroid, leukopenia, anemia, on immunosuppressive medication. For the last 2 days, she has no cough, not making any sputum. Requested sputum induction by Respiratory Therapy since yesterday. Spoke to nursing staff. Still waiting for a TB Gold test. Sed rate and C-reactive protein are jairo high. Continue antibiotics for now. If above all fail, cannot get specimen, we will need bronchoscopy. I offered bronchoscopy today to the patient. At presently, she is refusing it, understanding the risk. Continue pain management. Thank you and we will follow with you. Elizabeth Osborne MD [facility] # [phone]
[2017-08-21] MEDS: Oxycodone/Acetaminophen 5/325 mg Tab PO PRN ×5 (01:46→20:44)
--- NOTE | 2017-08-21 02:43 | PN ---
DATE: 08/20/2017 SUBJECTIVE: The patient is a 42-year-old female. The patient was seen and examined at the bedside on 08/20/2017 and looking comfortable. No nausea, vomiting, diarrhea. No hematuria or hematochezia. Complaining about body aches. PHYSICAL EXAMINATION VITAL SIGNS: Temperature 98, heart rate 50, respiratory rate 20, blood pressure 156/77, pulse oximetry 100% on room air. HEENT: Head normocephalic, atraumatic. Eyes PERRLA. Extraocular muscles intact. Conjunctivae clear. Nose patent. NECK: Supple. No carotid bruit. No JVD or thyromegaly. CHEST: Bilaterally symmetrical. HEART: S1 and S2 positive. LUNGS: Clear to auscultation. ABDOMEN: Soft, bowel sounds present. No organomegaly. EXTREMITIES: No edema. No cyanosis. NEUROLOGIC: Patient is awake and alert. Follows simple commands. LABORATORY DATA: Hemoglobin 8.4, hematocrit 26.2, white blood cells 2.5, platelets 146, sed rate is 150. MEDICATIONS: Humira, CellCept, cefepime, Percocet, Plaquenil, Synthroid, Zithromax. ASSESSMENT AND PLAN: Ms. Demi Corral is a 42-year-old female with sepsis with bilateral multilobular nodular infiltrates and history of lupus, rheumatoid arthritis, hypothyroidism, leukopenia, anemia, on immunosuppressive medications for the last 2 days. She has no cough and not making any sputum. Requested sputum production by the respiratory therapist since yesterday, but according to the patient, she is not able to produce sputum even if she is drinking enough water. We are waiting for TB gold test. Sed rate and C-reactive protein are jairo high. We will continue present treatment. The patient is on droplet isolation. Continue pain medication. Fall precautions. May be, the patient need bronchoscopy as per, she is refusing it. We will work on that. We will try to educate the patient. Repeat labs. We will follow up. Lynette Nayak MD
[2017-08-21 07:52] LABS: HEMOGLOBIN 8.4 g/dL (12.0-16.0); MEAN CELL VOLUME 90.3 fl (80.0-105.0); MEAN CORPUSCULAR HEMOGLOBIN 28.1 pg (25.0-35.0); MEAN CORPUSCULAR HGB CONC 31.1 g/dl (31.0-37.0); MEAN PLATELET VOLUME 11.4 fl (7.0-11.0); RBC 2.99 10^6/uL (3.5-6.1); RED CELL DISTRIBUTION WIDTH 14.1 % (11.5-14.5)
[2017-08-21 07:54] LABS: WHITE BLOOD COUNT 2.3 10^3/ul (4.5-11.0)
[2017-08-21] MEDS ORDERED: Iohexol 240 (50 ml) ONE (08:30)
[2017-08-21] MEDS ORDERED: ADALIMUMAB 40 MG SC SCH (10:00)
[2017-08-21] MEDS ORDERED: Iohexol 350 MG/100 ML VIAL ONE (11:07)
[2017-08-21] MEDS: Levothyroxine 100 MCG TAB PO SCH (12:31)
[2017-08-21] MEDS: Levothyroxine 25 MCG TAB PO SCH (12:31)
[2017-08-21] MEDS: Cefepime 1gm in NS 100ml 1 GM/100 ML BAG IVPB SCH ×2 (12:32→21:13)
[2017-08-21] MEDS: Azithromycin 500MG/NS 250ml 500 MG/250 ML BAG IVPB SCH (13:00)
--- NOTE | 2017-08-21 13:07 | CT ---
PROCEDURE: CT Abdomen and Pelvis with contrast HISTORY: anemia /() guaic (on respiratory isolation) COMPARISON: None. TECHNIQUE: Contrast dose: 100 cc Omnipaque 350 Radiation dose: Total exam DLP = 882.01 mGy-cm. This CT exam was performed using one or more of the following dose reduction techniques: Automated exposure control, adjustment of the mA and/or kV according to patient size, and/or use of iterative reconstruction technique. FINDINGS: LOWER THORAX: Unremarkable. LIVER: Hepatic steatosis. Focal fatty sparing adjacent to the falciform ligament. GALLBLADDER AND BILE DUCTS: Unremarkable. PANCREAS: Unremarkable. No gross lesion or ductal dilatation. SPLEEN: Unremarkable. ADRENALS: Unremarkable. No mass. KIDNEYS AND URETERS: Unremarkable. No hydronephrosis. No solid mass. VASCULATURE: Unremarkable. No aortic aneurysm. BOWEL: Colitis primarily affecting the ascending colon. Descending colon, sigmoid and rectum are unremarkable. APPENDIX: Normal appendix. PERITONEUM: Unremarkable. No free fluid. No free air. LYMPH NODES: Unremarkable. No enlarged lymph nodes. BLADDER: Unremarkable. REPRODUCTIVE: Unremarkable. BONES: No acute fracture. OTHER FINDINGS: None. IMPRESSION: Mild colitis affecting the ascending colon. Additional benign and/or incidental findings described above.
--- NOTE | 2017-08-21 17:59 | CP.PCM.PN ---
Subjective - Date & Time of Evaluation Date of Evaluation: 08/21/17 Time of Evaluation: 17:00 - Subjective Subjective: Infectious Disease Follow Up: August 21, 2017 42 yo AA female with extensive medical history of lupus, rheumatoid arthritis, and hypothyroidism. The patient with nausea and vomiting. She was found to have tachycardia and fevers up to 103 F. She appears to be fully awake and alert. Noted Pulmonary consult and notes. CT chest showing multilobar nodular densities. Afebrile today. Patient with leukopenia. Workup for Tuberculosis in progress. The patient was unable to produce sputum for testing. Awaiting PPD and Quantiferon results. On prior hospitalizations, the patient has had leukopenia in the 2 range. PPD negative. IF Quantiferon is also negative, risk for TB is extremely small. Clinically the patient is better. No cough or sputum production. Objective - Vital Signs/Intake and Output Vital Signs (last 24 hours): Temp Pulse Resp BP Pulse Ox 98.4 F 82 20 139/97 H 100 08/21/17 15:30 08/21/17 15:30 08/21/17 15:30 08/21/17 15:30 08/21/17 15:30 Intake and Output: 08/21/17 08/21/17 06:59 18:59 Intake Total 0 640 Balance 0 640 - Medications Medications: Current Medications Hydroxychloroquine Sulfate (Plaquenil) 200 mg PO BID JENNIE PRN Reason: Protocol Last Admin: 08/21/17 17:03 Dose: 200 mg Azithromycin (Zithromax 500mg In Ns) 500 mg in 250 mls @ 167 mls/hr IVPB DAILY JENNIE PRN Reason: Protocol Last Admin: 08/21/17 13:00 Dose: 167 mls/hr Cefepime HCl (Maxipime 1gm) 1 gm in 100 mls @ 100 mls/hr IVPB Q12 JENNIE PRN Reason: Protocol Last Admin: 08/21/17 12:32 Dose: 100 mls/hr Levothyroxine Sodium (Synthroid) 200 mcg PO DAILY JENNIE Last Admin: 08/21/17 12:31 Dose: 200 mcg Levothyroxine Sodium (Synthroid) 25 mcg PO DAILY JENNIE Last Admin: 08/21/17 12:31 Dose: 25 mcg Lorazepam (Ativan) 0.5 mg PO TID PRN; Protocol PRN Reason: Restlessness Last Admin: 08/21/17 15:55 Dose: 0.5 mg Mycophenolate Mofetil (Cellcept Cap) 500 mg PO BID JENNIE Last Admin: 08/21/17 17:03 Dose: 500 mg Non-Formulary Medication (Adalimumab [Humira]) 40 mg SC Q2W [facility] Oxycodone/Acetaminophen (Percocet 5/325 Mg Tab) 1 tab PO Q4H PRN PRN Reason: Pain, severe (8-10) Stop: 08/22/17 13:18 Last Admin: 08/21/17 16:53 Dose: 1 tab - Labs Labs: 08/21/17 07:00 08/19/17 06:30 PT 13.8 SECONDS (9.4-12.5) H 08/15/17 23:40 INR 1.21 (0.93-1.08) H 08/15/17 23:40 APTT 36.4 Seconds (25.1-36.5) 08/15/17 23:40 - Constitutional Appears: Non-toxic, No Acute Distress, Chronically Ill - Head Exam Head Exam: ATRAUMATIC, NORMOCEPHALIC - Eye Exam Eye Exam: EOMI, PERRL Pupil Exam: NORMAL ACCOMODATION, PERRL - ENT Exam ENT Exam: Mucous Membranes Moist, Normal External Ear Exam, TM's Normal Bilaterally - Neck Exam Neck Exam: Full ROM, Normal Inspection - Respiratory Exam Respiratory Exam: Clear to Ausculation Bilateral, NORMAL BREATHING PATTERN. absent: Rales, Rhonchi, Wheezes - Cardiovascular Exam Cardiovascular Exam: REGULAR RHYTHM, RRR, +S1, +S2 - GI/Abdominal Exam GI & Abdominal Exam: Soft, Normal Bowel Sounds. absent: Distended, Tenderness - Extremities Exam Extremities Exam: Full ROM, Normal Inspection - Neurological Exam Neurological Exam: Alert, Awake, CN II-XII Intact, Oriented x3 - Psychiatric Exam Psychiatric exam: Normal Affect, Normal Mood - Skin Skin Exam: Intact, Normal Color Assessment and Plan - Assessment and Plan (Free Text) Assessment: 42 yo AA female with fevers up to 103 F and tachycardia. History of lupus, rheumatoid arthritis, and hypothyroidism. The patient with leukopenia on admission. Saunders cultures sent. Chest X-ray showing no active disease. Influenza screen was negative. Started on Azithromycin. Added Cefepime. Awaiting culture results. CT scan showing multiple nodular densities in multiple lung bowen. Rule out TB. Given improvements in temperature, TB is a less likely diagnosis. If PPD or Quantiferon is positive, this does NOT prove active TB case. Ideally, isolation until TB ruled out. PPD negative. No cough or sputum production this past 2-3 days. Quantiferon still pending. Given current scenario, TB is unlikely. Patient afebrile for the last few days. Leukopenia. Awaiting Quantiferon results. Unclear to me if leukopenia is her normal state as she has had leukopenia on multiple hospitalizations here. Supportive care. Thank you for allowing me to participate in the care of the patient, we will follow with you.
--- NOTE | 2017-08-22 03:02 | PN ---
DATE: 08/21/2017 PULMONARY PROGRESS NOTE REFERRING PHYSICIAN: Lynette Nayak MD. SUBJECTIVE: Patient is lying in the bed, head at 45 degrees. No headache, no rhinitis. No fever. No cough. No chest pain. No nausea, no vomiting or diarrhea. No leg pain or leg swelling. OBJECTIVE: GENERAL: In no acute distress. VITAL SIGNS: Temperature is 98, heart rate 82, respiratory rate is 20, blood pressure 139/97, pulse of 100% on room air. HEENT: Moist mucous membrane. Crowded airway. NECK: Supple. No JVD. LUNGS: Have fair airflow with rhonchi. HEART: S1 and S2. ABDOMEN: Soft, nontender. No organomegaly. EXTREMITIES: No edema. NEUROLOGIC: Awake, alert, follows simple command. MEDICATIONS: She is on Humira 40 mg subcu, also on Ativan 0.5 mg three times a day p.r.n., Cellcept 500 mg twice a day, cefepime 1 g IV every 12 hours, Percocet 5/325 1 tab every 4 hours p.r.n., Plaquenil 200 mg twice a day, Synthroid 200 mcg daily, Synthroid 25 mcg daily, Zithromax 500 mg daily. LABORATORY DATA: Shows hemoglobin 8.4, hematocrit 27, WBC 2.3, platelet is 149. Sed rate is 150. Sodium 143, potassium 4.3, chloride 105, bicarbonate 24, BUN 9, creatinine 0.7, glucose 92, calcium 8.9, AST 37, ALT less than 6, alk phos is 137. C-reactive protein 57. TB Gold test still pending. Blood culture negative. Urine culture, no growth. Could not induce sputum. Has a CT of the abdomen and pelvis done, which shows mild colitis affecting the ascending colon, otherwise unremarkable. IMPRESSION AND PLAN: Sepsis with bilateral multilobar infiltrate, history of lupus, rheumatoid arthritis, hypothyroid, leukopenia, anemia, on immunosuppressive medications, colitis by CT scan. Pulmonary point of view, doing okay. There is no more cough. No shortness of breath. No fever. Could not induce sputum. The patient agreeable for bronchoscopy. We will repeat CT of the chest without contrast to assure the stability of nodules. TB Gold test is still pending. High C-reactive protein and sed rate could reflect her connective tissue disease. Thank you and we will follow with you. Elizabeth Osborne MD [facility] # [id number]
[2017-08-22] MEDS: Oxycodone/Acetaminophen 5/325 mg Tab PO PRN ×4 (03:38→21:49)
--- NOTE | 2017-08-22 03:41 | PN ---
DATE: 08/21/2017 SUBJECTIVE: This patient was seen and evaluated today. Patient is off the isolation, comfortable. No complaints of any abdominal pain. Patient did have a CAT scan done earlier. PHYSICAL EXAMINATION: VITAL SIGNS: Temperature is 98.5, pulse 84, blood pressure is 124/72, respirations 18. HEENT: Atraumatic, anicteric. NECK: Supple. HEART: S1 and S2 heard. LUNGS: Bilateral air entry present. ABDOMEN: Soft. There is no mass palpable. No tenderness. EXTREMITIES: No edema. No cyanosis. LABORATORY DATA: Hemoglobin is 8.4, hematocrit 27, WBC 2.3, platelet 149. BUN 9 and creatinine 0.7. IMPRESSION AND PLAN: Iron deficiency anemia, lung nodules. h/o Lupus,arthritis Patient is due to have a bronchoscopy scheduled on Wednesday. Patient clearly needs further evaluation because of the iron deficiency anemia. She would benefit from the colonoscopy and endoscopy. The CT scan done now was reviewed, found to have some thickening in the right colon. Patient did not have any tenderness. The thickening of the right colon is seen, probably nonspecific, the etiology is unclear. Would benefit from the colonoscopy once patient is further optimized. We will also consider upper GI endoscopy at the same time in view of the history of iron deficiency anemia. Thank you very much for allowing us to participate in the care of the patient. Gino Jc MD MTDD
[2017-08-22] MEDS: Levothyroxine 25 MCG TAB PO SCH (09:08)
[2017-08-22] MEDS: Levothyroxine 100 MCG TAB PO SCH (09:08)
[2017-08-22] MEDS: Cefepime 1gm in NS 100ml 1 GM/100 ML BAG IVPB SCH ×2 (09:08→21:36)
--- NOTE | 2017-08-22 10:20 | CT ---
PROCEDURE: CT Chest without contrast HISTORY: nodule COMPARISON: None. TECHNIQUE: Contiguous axial images were obtained through the chest without intravenous contrast enhancement. Sagittal and coronal reconstructions were performed. Radiation dose (DLP): 398.48 mGy-cm. This CT exam was performed using one or more of the following dose reduction techniques: Automated exposure control, adjustment of the mA and/or kV according to patient size, and/or use of iterative reconstruction technique. FINDINGS: LUNGS: 1. 3 mm pulmonary nodule anterior segment left upper lobe. 2. 2.5 mm pulmonary nodule anterior segment left upper lobe. 3. 3 mm pulmonary nodule medial segment right middle lobe. 4. 2.5 peripheral or pleural based pulmonary nodule anterior segment right upper lobe. Linear scarring periphery of the lateral segment right lower lobe. Peripheral scarring left lower lobe. MEDIASTINUM: Unremarkable thoracic aorta. No aneurysm. Normal sized heart. Main pulmonary artery unremarkable. No vascular congestion. No lymphadenopathy. PLEURA: No pleural fluid. No pneumothorax. BONES: No fracture. No destructive lesion. UPPER ABDOMEN: Hepatic steatosis with focal fatty sparing adjacent to the falciform ligament. OTHER FINDINGS: None. IMPRESSION: Multiple (4) small noncalcified well-circumscribed solid pulmonary nodules none larger than 3 mm. Findings are likely reflective of an infectious/inflammatory etiology.
[2017-08-22] MEDS: Azithromycin 500MG/NS 250ml 500 MG/250 ML BAG IVPB SCH (10:48)
[2017-08-22 14:46] LABS: TB ANTIGEN MINUS NIL <0.00 IU/mL
--- NOTE | 2017-08-22 18:13 | CP.PCM.PN ---
Subjective - Date & Time of Evaluation Date of Evaluation: 08/22/17 Time of Evaluation: 16:30 - Subjective Subjective: Infectious Disease Follow Up: August 22, 2017 42 yo AA female with extensive medical history of lupus, rheumatoid arthritis, and hypothyroidism. The patient with nausea and vomiting. She was found to have tachycardia and fevers up to 103 F. She appears to be fully awake and alert. Noted Pulmonary consult and notes. CT chest showing multilobar nodular densities. Afebrile today. Patient with leukopenia. Workup for Tuberculosis in progress. The patient was unable to produce sputum for testing. Awaiting PPD and Quantiferon results. On prior hospitalizations, the patient has had leukopenia in the 2 range. PPD negative. Quantiferon Indeterminate, risk for TB is relatively small. Clinically the patient is better. No cough or sputum production. Not making many complaints at this time. Objective - Vital Signs/Intake and Output Vital Signs (last 24 hours): Temp Pulse Resp BP Pulse Ox 98 F 78 18 119/89 99 08/22/17 15:09 08/22/17 15:09 08/22/17 15:09 08/22/17 15:09 08/22/17 15:09 Intake and Output: 08/22/17 08/22/17 06:59 18:59 Intake Total 1380 Balance 1380 - Medications Medications: Current Medications Hydroxychloroquine Sulfate (Plaquenil) 200 mg PO BID JENNIE PRN Reason: Protocol Last Admin: 08/22/17 09:09 Dose: 200 mg Cefepime HCl (Maxipime 1gm) 1 gm in 100 mls @ 100 mls/hr IVPB Q12 JENNIE PRN Reason: Protocol Last Admin: 08/22/17 09:08 Dose: 100 mls/hr Levothyroxine Sodium (Synthroid) 200 mcg PO DAILY JENNIE Last Admin: 08/22/17 09:08 Dose: 200 mcg Levothyroxine Sodium (Synthroid) 25 mcg PO DAILY JENNIE Last Admin: 08/22/17 09:08 Dose: 25 mcg Lorazepam (Ativan) 0.5 mg PO TID PRN; Protocol PRN Reason: Restlessness Last Admin: 08/22/17 09:09 Dose: 0.5 mg Mycophenolate Mofetil (Cellcept Cap) 500 mg PO BID JENNIE Last Admin: 08/22/17 09:08 Dose: 500 mg Non-Formulary Medication (Adalimumab [Humira]) 40 mg SC Q2W JENNIE - Labs Labs: 08/21/17 07:00 08/19/17 06:30 PT 13.8 SECONDS (9.4-12.5) H 08/15/17 23:40 INR 1.21 (0.93-1.08) H 08/15/17 23:40 APTT 36.4 Seconds (25.1-36.5) 08/15/17 23:40 - Constitutional Appears: Non-toxic, No Acute Distress, Chronically Ill - Head Exam Head Exam: ATRAUMATIC, NORMOCEPHALIC - Eye Exam Eye Exam: EOMI, PERRL Pupil Exam: NORMAL ACCOMODATION, PERRL - ENT Exam ENT Exam: Mucous Membranes Moist, Normal External Ear Exam, TM's Normal Bilaterally - Neck Exam Neck Exam: Full ROM, Normal Inspection - Respiratory Exam Respiratory Exam: Clear to Ausculation Bilateral, NORMAL BREATHING PATTERN. absent: Rales, Rhonchi, Wheezes - Cardiovascular Exam Cardiovascular Exam: REGULAR RHYTHM, RRR, +S1, +S2 - GI/Abdominal Exam GI & Abdominal Exam: Soft, Normal Bowel Sounds. absent: Distended, Tenderness - Extremities Exam Extremities Exam: Full ROM, Normal Inspection - Neurological Exam Neurological Exam: Alert, Awake, CN II-XII Intact, Oriented x3 - Psychiatric Exam Psychiatric exam: Normal Affect, Normal Mood - Skin Skin Exam: Intact, Normal Color Assessment and Plan - Assessment and Plan (Free Text) Assessment: 42 yo AA female with fevers up to 103 F and tachycardia. History of lupus, rheumatoid arthritis, and hypothyroidism. The patient with leukopenia on admission. Saunders cultures sent. Chest X-ray showing no active disease. Influenza screen was negative. Started on Azithromycin. Added Cefepime. Awaiting culture results. CT scan showing multiple nodular densities in multiple lung bowen. Rule out TB. Given improvements in temperature, TB is a less likely diagnosis. If PPD or Quantiferon is positive, this does NOT prove active TB case. Ideally, isolation until TB ruled out. PPD negative. No cough or sputum production this past 2-3 days. Quantiferon indeterminate. Given current scenario, TB is unlikely. Patient afebrile for the last few days. Leukopenia. Awaiting Quantiferon results. Unclear to me if leukopenia is her normal state as she has had leukopenia on multiple hospitalizations here. Supportive care. Remains on Cefepime and Azithromycin. The patient is for Bronchoscopy tomorrow. Thank you for allowing me to participate in the care of the patient, we will follow with you.
--- NOTE | 2017-08-22 18:31 | PN ---
DATE: 08/22/2017 PULMONARY PROGRESS NOTE REFERRING PHYSICIAN: Lynette Nayak MD. SUBJECTIVE: She is lying in the bed, head at 45 degrees. Night was unremarkable. No fever, no cough, no shortness of breath. No nausea, no vomiting, no diarrhea. No leg swelling. PHYSICAL EXAMINATION: GENERAL: In no acute distress. VITAL SIGNS: Temperature is 98, heart rate is 80, respiratory rate is 20, blood pressure 124/85, pulse ox 98% on room air. HEENT: Moist mucous membrane. Crowded airway. Mallampati score is 4. NECK: Supple. No JVD. LUNGS: Have a fair airflow with rhonchi. HEART: S1 and S2. ABDOMEN: Soft, nontender, no organomegaly. EXTREMITIES: No edema. NEUROLOGIC: Awake, alert, and follows simple command. MEDICATIONS: She is on Humira 40 mg subcutaneously every 2 weeks, lorazepam 0.5 mg three times a day p.r.n., CellCept 500 mg twice a day, cefepime 1 g IV every 12 hours, Plaquenil 200 mg twice a day, Synthroid 225 mcg daily. LABORATORY DATA: Reviewed, noticed stool for occult blood is positive. TB quantitative test, which is interferon, is indeterminate. Microbiology: Blood culture and urine culture, there is no growth. A repeat CAT scan done of the chest, which addendum note from Dr. Slaughter shows that segmental infiltrate identified previously showed interval improvement without complete resolution. IMPRESSION AND PLAN: Resolving pneumonia, multiple small lung nodules, history of lupus, rheumatoid arthritis, hypothyroid, leukopenia, anemia, on immunosuppressive medication, originally admitted with fever up to 103 and cough, found to have multiple small nodules and some infiltrates, could not get sputum for study. Quantitative TB Gold test is indeterminate. Repeat CAT scan showed some of the nodules disappeared, infiltrate improved, but residual is still there. Presently, she is totally asymptomatic, could not induce sputum by pulmonary therapy, so continue antibiotics as per infectious diseases. Discharge planning on p.o. antibiotics when cleared by the ID. The patient should have a definite repeat CAT scan in 3-4 weeks to assure the stability of nodule. The patient expressed understanding, the importance of followup CT. For now, we will not do bronchoscopy. She is off isolation. Thank you and we will follow with you. Elizabeth Osborne MD
[2017-08-23] MEDS: Oxycodone/Acetaminophen 5/325 mg Tab PO PRN ×2 (01:53→05:25)
[2017-08-23 02:53] VITALS: RESP 20
[2017-08-23 08:02] VITALS: BP 130/92; PULSE 83; TEMP 98; O2SAT 98
[2017-08-23 08:41] LABS: HEMOGLOBIN 8.6 g/dL (12.0-16.0); MEAN CELL VOLUME 89.8 fl (80.0-105.0); MEAN CORPUSCULAR HEMOGLOBIN 28.3 pg (25.0-35.0); MEAN CORPUSCULAR HGB CONC 31.5 g/dl (31.0-37.0); MEAN PLATELET VOLUME 10.8 fl (7.0-11.0); RBC 3.04 10^6/uL (3.5-6.1); RED CELL DISTRIBUTION WIDTH 14.3 % (11.5-14.5)
[2017-08-23 08:43] LABS: WHITE BLOOD COUNT 2.5 10^3/ul (4.5-11.0)
--- NOTE | 2017-08-23 09:09 | PN ---
DATE: 08/21/2017 SUBJECTIVE: The patient seen and examined at the bedside, is sitting on the bedside also, and doing the lunch. No fever. No chills. Cough is better. Shortness of breath is better. PHYSICAL EXAMINATION: VITAL SIGNS: Temperature 98.4, pulse 82, respiratory rate 20, blood pressure 140/97, pulse oximetry 100%. HEENT: Head normocephalic, atraumatic. Eyes PERRLA. Extraocular muscles intact. Conjunctivae clear. Nose patent. Mucous membranes moist. NECK: Supple. No carotid bruit. No JVD or thyromegaly. CHEST: Bilaterally symmetrical. HEART: S1 and S2 positive. LUNGS: Clear to auscultation. ABDOMEN: Soft, bowel sounds present. No organomegaly. EXTREMITIES: No edema. No cyanosis. NEUROLOGIC: Patient is awake and alert. Moving all four extremities. No focal deficits. MEDICATIONS: Plaquenil, Zithromax, Maxipime, levothyroxine, Synthroid, Ativan, CellCept, Percocet. LABORATORY DATA: White blood cell 2.3, hemoglobin 8.4, hematocrit , platelets 149. Sodium 143, potassium 4.3, BUN 9, creatinine 0.7, glucose 92. ASSESSMENT AND PLAN: Ms. Demi Corral is a 42-year-old lady with leukopenia, anemia, she came with fever and tachycardia, history of lupus, rheumatoid arthritis, hypothyroidism. Pancultures sent. Influenza screening is negative, getting azithromycin. Dr. Garcia added cefepime. Waiting for the culture. CAT scan showing multiple lung bowen rule out tuberculosis, . According to Dr. Garcia, QuantiFERON is positive, but it did not show any active disease. PPD negative. No cough or sputum production in the past 2 to 3 days. Gastrointestinal and deep vein thrombosis prophylaxis. Repeat labs. Length of time discussion done with the patient's nurse. Lynette Nayak MD
[2017-08-23] MEDS: Levothyroxine 100 MCG TAB PO SCH (09:49)
[2017-08-23] MEDS: Levothyroxine 25 MCG TAB PO SCH (09:49)
[2017-08-23] MEDS: Cefepime 1gm in NS 100ml 1 GM/100 ML BAG IVPB SCH (09:50)
--- NOTE | 2017-08-23 15:45 | CP.PCM.PN ---
Subjective - Date & Time of Evaluation Date of Evaluation: 08/23/17 Time of Evaluation: 10:00 - Subjective Subjective: Infectious Disease Follow Up: August 22, 2017 42 yo AA female with extensive medical history of lupus, rheumatoid arthritis, and hypothyroidism. The patient with nausea and vomiting. She was found to have tachycardia and fevers up to 103 F. She appears to be fully awake and alert. Noted Pulmonary consult and notes. CT chest showing multilobar nodular densities. Afebrile today. Patient with leukopenia. Workup for Tuberculosis in progress. The patient was unable to produce sputum for testing. Awaiting PPD and Quantiferon results. On prior hospitalizations, the patient has had leukopenia in the 2 range. PPD negative. Quantiferon Indeterminate, risk for TB is relatively small. Clinically the patient is better. No cough or sputum production. Not making many complaints at this time. Patient wants to go home. Objective - Vital Signs/Intake and Output Vital Signs (last 24 hours): Temp Pulse Resp BP Pulse Ox 98 F 83 20 130/92 H 98 08/23/17 06:00 08/23/17 06:00 08/23/17 06:00 08/23/17 06:00 08/23/17 06:00 Intake and Output: 08/23/17 08/23/17 06:59 18:59 Intake Total 540 Balance 540 - Labs Labs: 08/23/17 08:30 08/19/17 06:30 PT 13.8 SECONDS (9.4-12.5) H 08/15/17 23:40 INR 1.21 (0.93-1.08) H 08/15/17 23:40 APTT 36.4 Seconds (25.1-36.5) 08/15/17 23:40 - Constitutional Appears: Non-toxic, No Acute Distress, Chronically Ill - Head Exam Head Exam: ATRAUMATIC, NORMOCEPHALIC - Eye Exam Eye Exam: EOMI, PERRL Pupil Exam: NORMAL ACCOMODATION, PERRL - ENT Exam ENT Exam: Mucous Membranes Moist, Normal External Ear Exam, TM's Normal Bilaterally - Neck Exam Neck Exam: Full ROM, Normal Inspection - Respiratory Exam Respiratory Exam: Clear to Ausculation Bilateral, NORMAL BREATHING PATTERN. absent: Rales, Rhonchi, Wheezes - Cardiovascular Exam Cardiovascular Exam: REGULAR RHYTHM, RRR, +S1, +S2 - GI/Abdominal Exam GI & Abdominal Exam: Soft, Normal Bowel Sounds. absent: Distended, Tenderness - Extremities Exam Extremities Exam: Full ROM, Normal Inspection - Neurological Exam Neurological Exam: Alert, Awake, CN II-XII Intact, Oriented x3 - Psychiatric Exam Psychiatric exam: Normal Affect, Normal Mood - Skin Skin Exam: Intact, Normal Color Assessment and Plan - Assessment and Plan (Free Text) Assessment: 42 yo AA female with fevers up to 103 F and tachycardia. History of lupus, rheumatoid arthritis, and hypothyroidism. The patient with leukopenia on admission. Saunders cultures sent. Chest X-ray showing no active disease. Influenza screen was negative. Started on Azithromycin. Added Cefepime. Awaiting culture results. CT scan showing multiple nodular densities in multiple lung bowen. Rule out TB. Given improvements in temperature, TB is a less likely diagnosis. If PPD or Quantiferon is positive, this does NOT prove active TB case. Ideally, isolation until TB ruled out. PPD negative. No cough or sputum production this past 2-3 days. Quantiferon indeterminate. Given current scenario, TB is unlikely. Patient afebrile for the last few days. Leukopenia. Awaiting Quantiferon results. Unclear to me if leukopenia is her normal state as she has had leukopenia on multiple hospitalizations here. Supportive care. Remains on Cefepime and Azithromycin. Can consider use of Keflex for 5 more days on discharge. Thank you for allowing me to participate in the care of the patient, we will follow with you.
--- NOTE | 2017-08-23 19:30 | PN ---
DATE: 08/23/2017 PULMONARY PROGRESS NOTE REFERRING PHYSICIAN: Lynette Nayak MD. SUBJECTIVE: Sitting up in the bed. Night was unremarkable. No nausea. No vomiting, diarrhea, leg pain, leg swelling. No cough. No sputum production. No fever. OBJECTIVE: GENERAL: In no acute distress. VITAL SIGNS: Temp is 98, heart rate is 83, respiratory rate is 20, blood pressure 130/92, pulse ox 98% on room air. HEENT: Moist mucous membrane. Crowded airway. Mallampati score is 4. NECK: Supple. No JVD. LUNGS: Have a few scattered rhonchi. Overall, fair airflow. HEART: S1 and S2. ABDOMEN: Soft, nontender. No organomegaly. EXTREMITIES: No edema. NEUROLOGICAL: Awake and alert. Follows simple command. LABORATORY DATA: Reviewed shows hemoglobin 8.6, hematocrit 27.3, WBC 2.5, platelet count is 174. MEDICATIONS: Reviewed. No new medications reported since yesterday. IMPRESSION AND PLAN: Bilateral small nodule with possible infiltrate, history of lupus, rheumatoid arthritis, hypothyroid, leukopenia, anemia, on immunosuppressive medication. TB Gold test is indeterminate. Pulmonary point of view, she is doing much butter. No more fever. No cough. No sputum production. I had long discussion with the patient about the lung nodule and its improvement on the CAT scan. Most likely infectious and inflammatory in nature, but cannot rule out malignancy. The patient advised to get repeat CT in 4 weeks or so to show the stability. If persistent nodule, may need biopsy. The patient understands how important it is to get a followup CT. In case of malignancy, it could be devastating and the patient expressed understanding and we will follow up with primary medical doctor. Elizabeth Osborne MD
[2017-08-30] MEDS ORDERED: ADALIMUMAB 40 MG SC SCH (10:00)
== END 2017-08-23 11:17 | disposition home or self-care (01) | DRG 872 ==
LOC: ED 22:40 → ERH 08-16 03:00 → 3RNO 08-16 04:51 → OBSVTOIN 08-17 23:38 → 5RSO 08-18 17:16
PROVIDERS: ADMIT Internal Medicine; ATTEND Internal Medicine
DX: A41.9 Sepsis, unspecified organism (principal); F11.23 Opioid dependence with withdrawal; J20.9 Acute bronchitis, unspecified; E86.0 Dehydration; D50.9 Iron deficiency anemia, unspecified; D63.8 Anemia in other chronic diseases classified elsewhere; M06.9 Rheumatoid arthritis, unspecified; M32.9 Systemic lupus erythematosus, unspecified; E03.9 Hypothyroidism, unspecified; G47.30 Sleep apnea, unspecified; D72.819 Decreased white blood cell count, unspecified; G89.4 Chronic pain syndrome; Z87.01 Personal history of pneumonia (recurrent)

== ENCOUNTER 2018-02-26 07:21 | Emergency (ER) | payer MEDICARE, MEDICAID ==
[2018-02-26 07:22] VITALS: BMI 32.1
[2018-02-26 07:33] VITALS: RESP 18; O2SAT 99
[2018-02-26] MEDS ORDERED: Oxycodone/Acetaminophen 10/325 mg Tab PO STA (07:46)
--- NOTE | 2018-02-26 07:46 | ED PDOC ---
Arrival/HPI - General Chief Complaint: Pain, Chronic Time Seen by Provider: 02/26/18 07:24 Historian: Patient - History of Present Illness Narrative History of Present Illness (Text): 02/26/18 07:46 A 42 year old female, whose past medical history includes rheumatoid arthritis and lupus, presents to the emergency department complaining of chronic pain. Patient reports she receives a monthly prescription for pain medication and she missed her most recent appointment due to her doctor's office being closed for the on . Patient notes she had trouble sleeping at night due to pain. Patient denies any fever, shortness of breath, or any other complaints. Time/Duration: 4-6 hours (last night) Symptom Onset: Gradual Symptom Course: Unchanged Activities at Onset: Light Context: Home Past Medical History - Provider Review Nursing Documentation Reviewed: Yes - Infectious Disease Hx of Infectious Diseases: None - Tetanus Immunization Tetanus Immunization: Up to Date - Reproductive Menopause: Yes - Cardiac Hx Cardiac Disorders: No - Pulmonary Hx Pneumonia: Yes - Neurological Hx Neurological Disorder: No - HEENT Hx HEENT Disorder: No - Renal Hx Renal Disorder: No - Endocrine/Metabolic Hx Hypothyroidism: Yes Hx Systemic Lupus Erythematosus: Yes - Hematological/Oncological Other/Comment: lupus - Integumentary Hx Dermatological Disorder: No - Musculoskeletal/Rheumatological Hx Falls: No - Gastrointestinal Hx Gastrointestinal Disorders: No - Genitourinary/Gynecological Hx Incontinence: Yes - Psychiatric Hx Depression: No Hx Emotional Abuse: No Hx Physical Abuse: No Hx Substance Use: No - Surgical History Other/Comment: L ACHILLES TENDON REPAIR, UNKNOWN RT ANKLE SX - Anesthesia Hx Anesthesia: Yes - Suicidal Assessment Feels Threatened In Home Enviroment: No Family/Social History - Physician Review Nursing Documentation Reviewed: Yes Family/Social History: No Known Family HX Smoking Status: Never Smoked Hx Alcohol Use: No Hx Substance Use: No Hx Substance Use Treatment: No Allergies/Home Meds Allergies/Adverse Reactions: Allergies aspirin Allergy (Verified 02/26/18 07:33) RASH Home Medications: Home Meds Medication Instructions Recorded Confirmed RX: Adalimumab [Humira] 40 mg SC Q2W 06/19/14 02/26/18 RX: Hydroxychloroquine Sulfate 200 mg PO BID 03/25/16 02/26/18 [Plaquenil] RX: Levothyroxine [Synthroid] 225 mcg PO DAILY 03/25/16 02/26/18 RX: Mycophenolate Mofetil 500 mg PO BID 03/25/16 02/26/18 [Cellcept] Hydrocodone/Acetaminophen 1 tab PO QID PRN 08/15/17 02/26/18 [Hydrocodone-Acetaminophen 325 mg-7 mg] Review of Systems - Physician Review All systems were reviewed & negative as marked: Yes - Review of Systems Constitutional: absent: Fevers Respiratory: absent: SOB Physical Exam - Physical Exam Narrative Physical Exam (Text): 02/26/18 07:47 Constitutional: No acute distress. Head: Normocephalic. Atraumatic. Eyes: PERRL. ENT: Moist mucous membranes. Cardiovascular: Regular rate. Respiratory: Clear to auscultation bilaterally. Musculoskeletal: No tenderness or swelling of extremities. Skin: No rash. Neurologic: Alert, no focal deficit. Vital Signs Reviewed: Yes Vital Signs Temp Pulse Resp BP Pulse Ox 02/26/18 07:30 98.4 F 100 H 18 138/88 99 Temperature: Afebrile Blood Pressure: Normal Pulse: Regular Respiratory Rate: Normal Appearance: Positive for: Well-Appearing, Non-Toxic Mental Status: Positive for: Alert and Oriented X 3 Medical Decision Making ED Course and Treatment: 02/26/18 07:48 Impression: 42 year old female with chronic pain. Plan: -- Percocet -- F/u PMD for further chronic pain management. Prior Visits: Notes and results from previous visits were reviewed. - Scribe Statement The provider has reviewed the documentation as recorded by the Maxwell Manley All medical record entries made by the Josepibherrera were at my direction and personally dictated by me. I have reviewed the chart and agree that the record accurately reflects my personal performance of the history, physical exam, medical decision making, and the department course for this patient. I have also personally directed, reviewed, and agree with the discharge instructions and disposition. Disposition/Present on Arrival - Present on Arrival Any Indicators Present on Arrival: No History of DVT/PE: No History of Uncontrolled Diabetes: No Urinary Catheter: No History of Decub. Ulcer: No History Surgical Site Infection Following: None - Disposition Have Diagnosis and Disposition been Completed?: Yes Diagnosis: Chronic pain Disposition: HOME/ ROUTINE Disposition Time: 07:47 Patient Plan: Discharge Condition: STABLE Discharge Instructions (ExitCare): Chronic Pain (DC) Prescriptions: DiphenhydrAMINE [Benadryl] 2 cap PO QPM #25 cap Forms: [facility] (Slovenian)
[2018-02-26 08:20] VITALS: BP 136/82; PULSE 91; TEMP 98.5
== END 2018-02-26 07:55 | disposition home or self-care (01) ==
LOC: ED 07:21
DX: G89.29 Other chronic pain (principal); M06.9 Rheumatoid arthritis, unspecified; M32.9 Systemic lupus erythematosus, unspecified